=== PATIENT | female | born 1960 | race Caucasian/White ===

== ENCOUNTER → 2017-03-25 | Outpatient (REF) ==
[~2017-03-25] MED LIST: HYDR1OI TOP; TYLENOL #3; estrogel; multivitamin OR
--- NOTE | 2017-03-25 14:40 | REP ---
Chest two views HISTORY: Employee Health exam Comparison: 03/25/2016 The lungs are clear. The heart is normal in size. The pulmonary vasculature is normal in appearance. The bony structure is intact. IMPRESSION: No acute disease. Signed by Albino Mcguire MD 03/25/2017 02:31 P
[2017-03-25 15:16] LABS: MEAN CORPUSCULAR HEMOGLOBIN 31.8 pg (27.0-33.0); MEAN CORPUSCULAR HGB CONC 34.2 g/dl (32.0-36.5); RED CELL DISTRIBUTION WIDTH 12.6 % (11.5-14.5); WHITE BLOOD COUNT 6.7 K/mm3 (4.0-10.0)
[2017-03-25 15:43] LABS: ANION GAP 7 MEQ/L (8-16); BLOOD UREA NITROGEN 19 MG/DL (7-18); CALCIUM LEVEL 8.8 MG/DL (8.5-10.1); CARBON DIOXIDE LEVEL 28 MEQ/L (21-32); CHLORIDE LEVEL 107 MEQ/L (98-107); CHOLESTEROL LEVEL 168 MG/DL (<200); CREATININE FOR GFR 0.99 MG/DL (0.55-1.02); GLOMERULAR FILTRATION RATE > 60.0 (>51); GLUCOSE, FASTING 129 MG/DL (70-105); SODIUM LEVEL 142 MEQ/L (136-145); TRIGLYCERIDES LEVEL 91 MG/DL (<150)
--- NOTE | 2017-03-26 16:38 | ECGEPIP ---
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
== END ==
LOC: M LAB 13:10
PROVIDERS: ATTEND Internal Medicine
DX: Z00.00 Encounter for general adult medical examination without abnormal findings (principal)

== ENCOUNTER → 2017-03-28 | Outpatient (REF) | payer OTHER, BC | LOC: M SFHCWAGY 14:49 | PROVIDERS: ATTEND Nurse Practitioner Adult Health | DX: Z12.4 Encounter for screening for malignant neoplasm of cervix (principal) ==

== ENCOUNTER → 2017-05-25 | Outpatient (REF) ==
--- NOTE | 2017-05-25 09:10 | REPMRS ---
Patient History The patient states she had a clinical breast exam in 04/08 Family history of breast cancer in sister at age 40, colorectal cancer in mother at age 50 or over, and breast cancer in paternal cousin at age 44. Taking unspecified hormones for 5 years. Digital Woman Screen Mammo: May 25, 2017 - Exam #: [id number] Bilateral CC and MLO view(s) were taken. Technologist: Kalyn Gibbs, Technologist Prior study comparison: May 24, 2016, digital woman screen mammo performed at [facility]. August 08, 2014, digital woman screen mammo performed at [facility]. FINDINGS: There are scattered fibroglandular densities. There has been no change in the appearance of the mammogram from the prior studies. There is a mild amount of residual fibroglandular tissue which is fairly symmetric. There is no interval development of dominant mass, architectural distortion, or clustered microcalcification suggestive of malignancy. ASSESSMENT: BI-RADS/ACR category 1 mammogram. Negative. Recommendation Routine screening mammogram in 1 year (for women over age 40). This mammogram was interpreted with the aid of an FDA-approved computer-aided dectection system. A. Negative x-ray reports should not delay biopsy if a dominant or clinically suspicious mass is present. B. Four to eight percent of cancers are not identified by mammography. C. Adenosis and dense breast may obscure an underlying neoplasm. Electronically Signed By: Emerson Guerra MD 05/25/17 [id number]
== END ==
LOC: M WHC 08:01
PROVIDERS: ATTEND Nurse Practitioner Adult Health
DX: Z12.31 Encounter for screening mammogram for malignant neoplasm of breast (principal)

== ENCOUNTER → 2018-03-23 | Outpatient (CLI) | payer BC, OTHER ==
[2018-03-23 08:09] LABS: HEMATOCRIT 38.5 % (36.0-47.0); HEMOGLOBIN 12.6 g/dl (12.0-15.5); MEAN CORPUSCULAR HEMOGLOBIN 28.6 pg (27.0-33.0); MEAN CORPUSCULAR HGB CONC 32.7 g/dl (32.0-36.5); MEAN CORPUSCULAR VOLUME 87.3 fl (80.0-96.0); PLATELET COUNT, AUTOMATED 290 10^3/uL (150-450); RED BLOOD COUNT 4.41 10^6/uL (4.00-5.40); RED CELL DISTRIBUTION WIDTH 13.9 % (11.5-14.5); WHITE BLOOD COUNT 5.3 10^3/uL (4.0-10.0)
[2018-03-23 08:45] LABS: ALBUMIN 3.6 GM/DL (3.2-5.2); ALKALINE PHOSPHATASE 61 U/L (45-117); ALT/SGPT 41 U/L (12-78); ANION GAP 7 MEQ/L (8-16); AST/SGOT 27 U/L (7-37); BILIRUBIN,TOTAL 0.3 MG/DL (0.2-1.0); BLOOD UREA NITROGEN 14 MG/DL (7-18); CALCIUM LEVEL 8.2 MG/DL (8.5-10.1); CARBON DIOXIDE LEVEL 27 MEQ/L (21-32); CHLORIDE LEVEL 110 MEQ/L (98-107); CREATININE FOR GFR 0.64 MG/DL (0.55-1.30); GLOMERULAR FILTRATION RATE > 60.0 (>51); GLUCOSE, FASTING 80 MG/DL (70-100); SODIUM LEVEL 144 MEQ/L (136-145); TOTAL PROTEIN 6.6 GM/DL (6.4-8.2)
[2018-03-23 12:12] LABS: VITAMIN B12 LEVEL 937 PG/ML
[2018-03-23 12:13] LABS: FOLATE 21.5 NG/ML
[2018-03-23 12:35] LABS: HEPATITIS C VIRUS ABY INDEX < 0.0 INDEX (<0.8)
== END ==
LOC: M LAB 07:09
DX: Z11.59 Encounter for screening for other viral diseases (principal); Z98.84 Bariatric surgery status
CPT/HCPCS: 82746

== ENCOUNTER → 2018-07-03 | Outpatient (REF) | LOC: M WHC 06:38 | DX: Z00.00 Encounter for general adult medical examination without abnormal findings (principal); Z12.31 Encounter for screening mammogram for malignant neoplasm of breast ==

== ENCOUNTER → 2018-09-04 | Outpatient (CLI) | payer OTHER, BC | LOC: M RAD 07:30 | DX: S46.211A Strain of muscle, fascia and tendon of other parts of biceps, right arm, initial encounter (principal); X58.XXXA Exposure to other specified factors, initial encounter; Y92.9 Unspecified place or not applicable; M75.31 Calcific tendinitis of right shoulder | CPT/HCPCS: 73221 ==

== ENCOUNTER → 2019-02-06 | Outpatient (CLI) | payer OTHER, BC ==
[~2019-02-06] MED LIST changes: -HYDR1OI TOP; +HYDR1OIN2 TOP
[2019-02-06 16:37] LABS: HEMOGLOBIN 12.4 g/dl (12.0-15.5); MEAN CORPUSCULAR HEMOGLOBIN 27.3 pg (27.0-33.0); MEAN CORPUSCULAR HGB CONC 32.6 g/dl (32.0-36.5); MEAN CORPUSCULAR VOLUME 83.5 fl (80.0-96.0); PLATELET COUNT, AUTOMATED 335 10^3/uL (150-450); RED BLOOD COUNT 4.55 10^6/uL (4.00-5.40); WHITE BLOOD COUNT 9.1 10^3/uL (4.0-10.0)
[2019-02-06 17:05] LABS: ALBUMIN 3.7 GM/DL (3.2-5.2); ALT/SGPT 33 U/L (12-78); BILIRUBIN,TOTAL 0.3 MG/DL (0.2-1.0); BLOOD UREA NITROGEN 9 MG/DL (7-18); CALCIUM LEVEL 7.9 MG/DL (8.5-10.1); CARBON DIOXIDE LEVEL 27 MEQ/L (21-32); CHLORIDE LEVEL 108 MEQ/L (98-107); GLOMERULAR FILTRATION RATE > 60.0 (>51); GLUCOSE, FASTING 79 MG/DL (70-100); SODIUM LEVEL 139 MEQ/L (136-145); TOTAL PROTEIN 6.5 GM/DL (6.4-8.2)
== END ==
LOC: M LAB 16:12
PROVIDERS: ATTEND Nurse Practitioner Adult Health
DX: J34.89 Other specified disorders of nose and nasal sinuses (principal)

== ENCOUNTER → 2019-02-21 | Outpatient (CLI) | payer OTHER, BC ==
--- NOTE | 2019-02-21 16:44 | REP ---
MAXILLOFACIAL CT WITHOUT CONTRAST: HISTORY: Sinus pressure. COMPARISON: 12/02/2013 Very minimal mucosal thickening is present in the right ethmoid sinus. The remaining sinuses are clear. The osteomeatal units are patent. The middle and inferior nasal turbinates are partially paradoxical. There is very minimal deviation of the nasal septum to the left. The nasal septum abuts the left inferior nasal turbinate. The cribriform plate, medial beasley of the orbits and optic canals are intact. The carotid canals form a segment of the posterolateral beasley of the sphenoid sinus. The sphenoid sinus septa inserts into the internal carotid canals beasley. IMPRESSION:Sinus mucosal thickening as described above. Electronically Signed by Albino Mcguire MD 02/21/2019 04:46 P
== END ==
LOC: M RAD 15:52
PROVIDERS: ATTEND Nurse Practitioner Adult Health
DX: J34.89 Other specified disorders of nose and nasal sinuses (principal)

== ENCOUNTER → 2019-08-17 | Outpatient (REF) | payer OTHER, BC ==
[2019-08-17 09:53] LABS: APPEARANCE, URINE CLEAR (CLEAR); BACTERIA, URINE AUTO NEGATIVE (NEGATIVE); BILIRUBIN, URINE AUTO NEGATIVE (NEGATIVE); BLOOD, URINE BLOOD NEGATIVE (NEGATIVE); COLOR, URINE COLORLESS (YELLOW); GLUCOSE, URINE (UA) AUTO NEGATIVE (NEGATIVE); KETONE, URINE AUTO NEGATIVE (NEGATIVE); LEUKOCYTE ESTERASE, URINE AUTO NEGATIVE (NEGATIVE); NITRITE, URINE AUTO NEGATIVE (NEGATIVE); PROTEIN, URINE AUTO NEGATIVE (NEGATIVE); RBC, URINE AUTO 0 /HPF (0-3); SPECIFIC GRAVITY URINE AUTO 1.003 (1.002-1.035); SQUAMOUS EPITHELIAL CELL UR AU 0 /HPF (0-6); UROBILINOGEN, URINE AUTO 0.2 mg/dL (0.0-2.0); WBC, URINE AUTO 0 /HPF (0-3)
== END ==
LOC: M LAB REF 07:40
PROVIDERS: ATTEND Internal Medicine
DX: R30.0 Dysuria (principal)

== ENCOUNTER 2019-12-22 14:33 | Emergency (ER) | payer OTHER, BC ==
[~2019-12-22] VITALS: Ht 165.1 cm; Wt 72.7 kg
[2019-12-22] MEDS ORDERED: NS 1,000 ML IV ONE (15:15)
[2019-12-22 15:17] LABS: BASO # 0.1 10^3/uL (0.0-0.2); BASO % 0.5 % (0.0-1.0); EOS # 0.2 10^3/uL (0.0-0.5); EOS % 1.4 % (0.0-3.0); HEMOGLOBIN 10.6 g/dl (12.0-15.5); LYMPH # 3.1 10^3/uL (1.5-5.0); LYMPH % 27.9 % (24.0-44.0); MEAN CORPUSCULAR HEMOGLOBIN 25.2 pg (27.0-33.0); MEAN CORPUSCULAR HGB CONC 32.1 g/dl (32.0-36.5); MEAN CORPUSCULAR VOLUME 78.6 fl (80.0-96.0); MONO % 9.1 % (0.0-5.0); NEUTROPHILS # 6.7 10^3/uL (1.5-8.5); NEUTROPHILS % 60.6 % (36.0-66.0); PLATELET COUNT, AUTOMATED 358 10^3/uL (150-450); WHITE BLOOD COUNT 11.1 10^3/uL (4.0-10.0)
[2019-12-22 15:23] LABS: INR 1.04; PARTIAL THROMBOPLASTIN TIME 27.1 SECONDS (25.0-38.4); PROTHROMBIN TIME 13.3 SECONDS (11.8-14.0)
[2019-12-22] MEDS ORDERED: FLUC100T (15:27)
[2019-12-22] MEDS ORDERED: METH-1022 (15:27)
[2019-12-22] MEDS ORDERED: PANT40TA3 (15:27)
[2019-12-22 15:32] LABS: ALBUMIN 3.7 GM/DL (3.2-5.2); ALT/SGPT 31 U/L (12-78); BILIRUBIN,DIRECT < 0.1 MG/DL (0.0-0.2); BILIRUBIN,TOTAL 0.3 MG/DL (0.2-1.0); C REACTIVE PROTEIN QUANTITATIV < 0.30 MG/DL (0.00-0.30); CK-MB VALUE MASS 3.2 NG/ML (<3.6); CPK CREATINE PHOSPHOKINASE 176 U/L (26-192); LIPASE 158 U/L (73-393); MB/CK RELATIVE INDEX 1.82 (< OR =4); NT-PRO BNP 51 PG/ML (<125); THYROID STIMULATING HORMONE 0.717 uIU/ML (0.358-3.740); TOTAL PROTEIN 6.9 GM/DL (6.4-8.2); TROPONIN I < 0.02 NG/ML (< 0.10)
[2019-12-22] MEDS ORDERED: ISOVUE-370 76% 100ML VIAL (Q9967) As Ordered ONE (15:36)
[2019-12-22 15:49] LABS: ERYTHROCYTE SEDIMENTATION RATE 29 mm/hr (0-30)
[2019-12-22] MEDS ORDERED: AMMONIA AROMATIC INHALANT (FLOOR STOCK) As Ordered ONE (16:00)
[2019-12-22] MEDS ORDERED: KETOROLAC 30 MG/ML VIAL (J1885) IV ONE (16:30)
[2019-12-22 17:37] LABS: CK-MB VALUE MASS 2.9 NG/ML (<3.6); CPK CREATINE PHOSPHOKINASE 140 U/L (26-192); MB/CK RELATIVE INDEX 2.07 (< OR =4); TROPONIN I < 0.02 NG/ML (< 0.10)
[2019-12-22 17:58] LABS: FERRITIN 5 NG/ML (8-252); IRON (FE) 28 UG/DL (50-170); PERCENT SATURATION 6.5 % (13.2-45.0); TOTAL IRON BINDING CAPACITY 431 UG/DL (250-450)
[2019-12-22] MEDS ORDERED: VITA500C24 PO (18:22)
[2019-12-22] MEDS ORDERED: FERR325T3 PO (18:22)
[2019-12-22 18:35] VITALS: BP 112/69
--- NOTE | 2019-12-22 20:51 | ECGEPIP ---
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
--- NOTE | 2019-12-22 20:55 | ECGEPIP ---
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
--- NOTE | 2019-12-23 07:41 | REP ---
CT ANGIOGRAM CHEST: TECHNIQUE: Axial contrast enhanced images from the thoracic inlet to the upper abdomen using 100 mL Isovue 370 intravenous contrast material with multiplanar reformations. There is no CT evidence of pulmonary embolism. There is no thoracic aortic aneurysm or dissection. The heart is normal in size. There is no pleural or pericardiac effusion. There is a calcified subcarinal lymph node. Calcified lymph nodes are seen in the hilar regions. Calcified granuloma is seen in the right lung in the perihilar region and there are two calcified granulomas in the left lower lobe. No infiltrate is seen in either lung. IMPRESSION: No CT evidence of pulmonary embolism. Evidence of prior granulomatous disease. Electronically Signed by Hussein Ly MD 12/23/2019 12:02 P
--- NOTE | 2019-12-23 07:46 | REP ---
CT ABDOMEN AND PELVIS WITH IV CONTRAST: TECHNIQUE: Axial contrast enhanced images from the lung bases to the pubic symphysis using 100 mL Isovue 370 intravenous contrast material with multiplanar reformations. There is a small hiatal hernia. There is evidence of prior gastric surgery. The liver demonstrates a cyst in the right lobe measuring 2 cm in diameter. There is a subcentimeter cyst in the inferior posterior right lobe of liver. Patient has had a prior cholecystectomy. Spleen is normal in size. Splenic artery aneurysm is seen in the splenic hilum partially opacifying with IV contrast, diameter is approximately 2.2 cm. Adrenal glands are normal. Pancreas demonstrates no mass and no evidence of pancreatic duct dilatation. Kidneys are unremarkable. There is no hydronephrosis. There is no abdominal aneurysm. Multiple subcentimeter mesenteric lymph nodes are seen centrally which are nonspecific. Otherwise no adenopathy is seen. There is no free air or free fluid. There is no bowel wall thickening. Mildly distended colon is seen containing air and fecal material. I do not see evidence of small bowel obstruction. No pelvic mass is seen. The patient has had a hysterectomy. There are mild degenerative changes of the spine. IMPRESSION: There is evidence of prior cholecystectomy, gastric surgery, and hysterectomy. Small hiatal hernia. No free air or free fluid. Mild colonic distension containing air and fecal material. No evidence of small bowel obstruction. Moderately distended bladder. Multiple subcentimeter lymph nodes in the mesentery are nonspecific. Splenic artery aneurysm. Electronically Signed by Hussein Ly MD 12/23/2019 01:19 P
--- NOTE | 2019-12-25 10:51 | ED PDOC ---
Post-Departure Follow-Up dr faust faxed formal report of ct abd/p for fu Ryne Germain MD Dec 25, 2019 10:51
== END 2019-12-22 18:38 | disposition home or self-care (01) ==
LOC: M ED 14:33
DX: D50.9 Iron deficiency anemia, unspecified (principal); K59.00 Constipation, unspecified; R07.89 Other chest pain; I72.8 Aneurysm of other specified arteries; I45.19 Other right bundle-branch block; F90.9 Attention-deficit hyperactivity disorder, unspecified type; K21.9 Gastro-esophageal reflux disease without esophagitis; G47.30 Sleep apnea, unspecified; Z79.899 Other long term (current) drug therapy; Z88.8 Allergy status to other drugs, medicaments and biological substances
CPT/HCPCS: 71275; 74177; 80047; 80076; 82550; 82553; 82728; 83550; 83690; 83880; 84443; 84484; 85025; 85610; 85652; 85730; 86140; 93005; 93041; 94760; 96360; 96361; 96375; 99285; J1885; Q9967

== ENCOUNTER 2020-05-11 19:04 | Inpatient (IN) | payer OTHER, BC ==
[~2020-05-11] VITALS: Ht 165.1 cm; Wt 74.1 kg
[~2020-05-11 19:04] MED LIST changes: +FERR325T3 PO; +FLUC100T; +METH-1022; +PANT40TA29; +VITA500C24 PO
[2020-05-11] MEDS ORDERED: ASPI81TA26 PO (19:43)
[2020-05-11] MEDS ORDERED: NS 1,000 ML IV ONE (19:45)
--- NOTE | 2020-05-11 19:47 | REPVR ---
PROCEDURE INFORMATION: Exam: CT Head Without Contrast Exam date and time: 05/11/2020 7:21 PM Age: 60 years old Clinical indication: Numbness / parasthesia; Right; Additional info: Neuro SX TECHNIQUE: Imaging protocol: Computed tomography of the head without contrast. Radiation optimization: All CT scans at this facility use at least one of these dose optimization techniques: automated exposure control; mA and/or kV adjustment per patient size (includes targeted exams where dose is matched to clinical indication); or iterative reconstruction. COMPARISON: CT Head without contrast 12/02/2013 6:16 AM FINDINGS: Brain: Unremarkable. No hemorrhage. No significant white matter disease. No edema. No acute stroke identified. Note should be made that early acute stroke may not be visible on initial CT scan. Ventricles: Unremarkable. No ventriculomegaly. Bones/joints: Unremarkable. No acute fracture. Sinuses: Visualized sinuses are unremarkable. No fluid levels. Mastoid air cells: Visualized mastoid air cells are well aerated. Soft tissues: Unremarkable. IMPRESSION: No acute abnormality. Electronically signed by: Brendan Higuera On 05/11/2020 19:47:43 PM
[2020-05-11 19:54] LABS: BASO # 0.1 10^3/uL (0.0-0.2); BASO % 0.4 % (0.0-1.0); EOS # 0.1 10^3/uL (0.0-0.5); EOS % 1.1 % (0.0-3.0); HEMATOCRIT 28.6 % (36.0-47.0); HEMOGLOBIN 8.9 g/dl (12.0-15.5); LYMPH # 2.8 10^3/uL (1.5-5.0); LYMPH % 24.9 % (24.0-44.0); MEAN CORPUSCULAR HEMOGLOBIN 22.3 pg (27.0-33.0); MEAN CORPUSCULAR HGB CONC 31.1 g/dl (32.0-36.5); MEAN CORPUSCULAR VOLUME 71.5 fl (80.0-96.0); MONO # 1.2 10^3/uL (0.0-0.8); MONO % 10.2 % (0.0-5.0); NEUTROPHILS # 7.1 10^3/uL (1.5-8.5); NEUTROPHILS % 62.9 % (36.0-66.0); PLATELET COUNT, AUTOMATED 433 10^3/uL (150-450); WHITE BLOOD COUNT 11.3 10^3/uL (4.0-10.0)
[2020-05-11 19:59] LABS: INR 1.08; PARTIAL THROMBOPLASTIN TIME 29.3 SECONDS (25.0-38.4); PROTHROMBIN TIME 13.7 SECONDS (11.8-14.0)
[2020-05-11] MEDS ORDERED: VITMTA PO (23:02)
[2020-05-11] MEDS ORDERED: METH-1022 PO (23:02)
[2020-05-11] MEDS ORDERED: CODCAP25 PO (23:02)
[2020-05-11] MEDS ORDERED: MAG400TA PO (23:02)
[2020-05-11] MEDS ORDERED: C 50TAB PO (23:02)
[2020-05-11] MEDS ORDERED: METOCLOPRAMIDE INJ 10MG/2ML VIAL (J2765 PER 1) IV ONE (23:15)
[2020-05-11] MEDS ORDERED: KETOROLAC 30 MG/ML 1ML VIAL IV ONE (23:15)
[2020-05-12] MEDS ORDERED: ACETAMINOPHEN TAB 650MG DOSE (2X325MG) PO PRN
[2020-05-12] MEDS ORDERED: PANTOPRAZOLE 40MG TAB (PROTONIX) PO ONE (00:15)
[2020-05-12] MEDS: NS 1,000 ML IV SCH ×3 (00:15→21:02)
[2020-05-12] MEDS ORDERED: KETOROLAC 30 MG/ML 1ML VIAL IV PRN (00:15)
--- NOTE | 2020-05-12 00:28 | HPEPDOC ---
General Date of Admission 05/12/2020 Date of Service: May 12, 2020 Chief Complaint The patient is a 60-year-old female Who presented to the hospital with complaints of headache and numbness of multiple areas of her body History of Present Illness Patient is a 60-year-old female with a PMHx of ADHD, DLP who presented to the hospital with complaints of headache and multiple areas with numbness on the right side of her body. Patient was that she was recently at [facility] for correction of a splenic artery aneurysm, which was incidentally found when she was evaluated for a PE. She had presented there on 04/17 for an elective procedure with vascular surgery. She initially received an angiogram. Her right femoral artery. However, they were unable to advance it to the splenic artery because of her gastric bypass. . He subsequently went into a left brachial artery, breakdown and embolized the splenic artery with 9 coils. Patient received Reglan, Toradol, and heparin post-procedure and was subsequently discharged home. Patient noted that at home she was experiencing a right-sided headache associated with some tingling of her right second digit of her foot and her ri ght upper lip. Patient felt like she had a speech, but was unnoticeable by others. Patient presented to the emergency room for further evaluation. However, she is reported that now she no longer experiences any of the numbness. Still experiences a headache that has now progressed from her right eye across the front of her of her forehead and radiates to the back. Patient reports the pain initially was a 6/10 but is now 3/10, reported as an achy/pressure-like, occurring intermittently alleviated with Toradol. . She reports some aggravation with light no changes and sensitivity to sound. Patient denies any nausea, vomiting, abdominal pain, constipation, diarrhea, urinary discomfort, fevers, chills, chest pain, shortness of breath, cough or palpitations. Home Medications Scheduled Ascorbic Acid (Vitamin C) 500 Mg Tablet, 500 MG PO DAILY, (Reported) Aspirin (Aspirin EC) 81 Mg Tablet.dr, 81 MG PO DAILY, (Reported) Magnesium Oxide (Magnesium Oxide) 400 Mg Tablet, 400 MG PO DAILY, (Reported) Multivitamins (Thera M Plus Tablet) 1 Each Tablet, 1 TAB PO DAILY, (Reported) Vit A and D3 in Cod Liver Oil (Cod Liver Oil Softgel) 1 Each Capsule, 1 CAP PO DAILY, (Reported) Scheduled PRN Methylphenidate HCl (Methylphenidate HCl) 10 Mg Tablet, 10 MG PO DAILY PRN for CONCENTRATION, (Reported) Allergies Coded Allergies: latex (Verified Allergy, Intermediate, rash, 05/11/20) nitrofurantoin (Verified Allergy, Mild, THROAT SWELLING, 12/22/19) Past Medical History Medical History ADHD, DLP Surgical History Gastric bypass Hysterectomy Vaginal repair with bladder suspension, resulting and rectocele Cholecystectomy and appendectomy Right ankle fracture with plate Family History - Maternal grandmother with diabetes and father with macular degeneration Social History - Denies the use of alcohol, tobacco or illicit drugs - Denies recent travel or sick contacts - Lives with and children - 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; 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 Review of Systems Other systems 10 point review of systems complete, all negative otherwise stated in HPI Vital Signs - Vitals: BP [107/65], HR [75], RR [16], Sat [100%RA], Temp [99.5F] - General: Lying in bed, No acute distress, Speaking in full sentences, AAOx3 - HEENT: NC, AT, PERRLA, EOMI - CVS: RRR, +S1S2 - Lungs: Fair air entry bilaterally, No appreciable wheezing / rales / rhonchi - Abdomen: Soft, Non-distended, Non-tender - Extremities: No lower extremity edema, No calf tenderness - Neuro: 5/5 strength at upper / lower extremities bilaterally; sensation intact bilaterally; CN2-12 grossly intact - Skin: No visible rashes Laboratory Data Labs 24H Laboratory Tests 2 05/11/20 19:15: Immature Granulocyte % (Auto) 0.5, Neutrophils (%) (Auto) 62.9, Lymphocytes (%) (Auto) 24.9, Monocytes (%) (Auto) 10.2H, Eosinophils (%) (Auto) 1.1, Basophils (%) (Auto) 0.4, Neutrophils # (Auto) 7.1, Lymphocytes # (Auto) 2.8, Monocytes # (Auto) 1.2H, Eosinophils # (Auto) 0.1, Basophils # (Auto) 0.1, Nucleated Red Blood Cells % (auto) 0.0, Prothrombin Time 13.7, Prothromb Time International Ratio 1.08, Activated Partial Thromboplast Time 29.3 05/11/20 20:32: POC Glucose (Misc Panel) 75, POC Sodium (Misc Panel) 139, POC Potassium (Misc Panel) 3.4L, POC Chloride (Misc Panel) 101, POC Total CO2 (Misc Panel) 24.0, POC Blood Urea Nitrogen (Misc Panel 13, POC Ionized Calcium (Misc Panel) 4.5, POC Creatinine (Misc Panel) 0.6, POC Hematocrit (Misc Panel) 48.0 05/11/20 20:46: POC Troponin I (Misc) 0.00 CBC/BMP Laboratory Tests 05/11/20 19:15 Plan / VTE VTE Prophylaxis Ordered?: Yes Plan Plan Headache / Right lip and toe numbness - possibly 2/2 TIA, possibly 2/2 complex migraine - Patient presented to the emergency room after she noted a headache this morning and right foot second digit as well as right upper lip numbness and tingling - Upon arrival to ER, patient has had resolution of her numbness and her headache has improved, but is now diffusely spread throughout her head - Physical without any focal neurologic deficits - CT head 05/11: No acute abnormality. - Ritesh check MRI / MRA brain if possible (given recent coil placement of splenic artery) - If MRI cannot proceed will get repeat CT head in 12 hours / CTA head/neck/chest - Will get ECHO / Neuro checks / Telemetry / Cardiac risk profile - Patient recently started taking ASA 2 days ago; will c/w ASA 81; will start Pravastatin - Will start PT - Will c/w Ketorolac and IV fluid hydration for now Recent splenic artery aneurysm embolization - 9 coils placed ADHD - c/w Methylphenidate DLP - Will start pravastatin GERD - Will start Protonix DVT prophylaxis - Will start TEDs/DARA Pagan MD May 12, 2020 00:28
[2020-05-12 00:50] LABS: CHOLESTEROL RISK RATIO 2.725 (<5); MAGNESIUM LEVEL 2.5 MG/DL (1.8-2.4)
--- NOTE | 2020-05-12 02:42 | REPVR ---
PROCEDURE INFORMATION: Exam: MR Angiogram Head Without Contrast, Arteries Exam date and time: 05/12/2020 2:26 AM Age: 60 years old Clinical indication: Patient HX: PT states HX of chronic migraines, numbness in upper lip, and toes that has since subsided, nki no priors obatinable; Additional info: TIA. Recent splenic artery coils (needs mri safety check) TECHNIQUE: Imaging protocol: MR angiogram head without contrast. Exam focused on the arteries. 3D rendering: MIP and/or 3D reconstructed images were created by the technologist. COMPARISON: CT Head without contrast 05/11/2020 7:18 PM FINDINGS: Anterior cerebral arteries: Intracranial segment is patent with no significant stenosis. No aneurysm. Right internal carotid artery: Intracranial segment is patent with no significant stenosis. No aneurysm. Right middle cerebral artery: No occlusion or significant stenosis. No aneurysm. Right posterior cerebral artery: No occlusion or significant stenosis. No aneurysm. Right vertebral artery: No occlusion or significant stenosis. No aneurysm. Left internal carotid artery: Intracranial segment is patent with no significant stenosis. No aneurysm. Left middle cerebral artery: No occlusion or significant stenosis. No aneurysm. Left posterior cerebral artery: No occlusion or significant stenosis. No aneurysm. Left vertebral artery: Dominant left vertebral artery. Basilar artery: No occlusion or significant stenosis. No aneurysm. IMPRESSION: Unremarkable MRA of the [id number]. Electronically signed by: Van Mccoy On 05/12/2020 02:41:28 AM
--- NOTE | 2020-05-12 02:58 | REPVR ---
PROCEDURE INFORMATION: Exam: MR Head Without Contrast Exam date and time: 05/12/2020 2:26 AM Age: 60 years old Clinical indication: Numbness / parasthesia; Bilateral; Patient HX: PT states HX of chronic migraines, numbness in upper lip, and toes that has since subsided, nki no priors obatinable; Additional info: TIA. Recent splenic artery coils (needs mri safety check) TECHNIQUE: Imaging protocol: MR of the head without contrast. COMPARISON: CT Head without contrast 05/11/2020 7:18 PM FINDINGS: Major vascular flow voids at the skull base are preserved. No extra-axial fluid collection. No hydrocephalus. No midline shift or intracranial mass effect. Minimal nonspecific white matter gliosis, probable chronic microvascular ischemia. No cerebral edema. Punctate focus of diffusion weighted signal at the left cerebellum. Visualized paranasal sinuses and mastoid air cells are clear. IMPRESSION: Punctate focus of diffusion weighted signal at the left cerebellum concerning for tiny acute/early subacute ischemic infarct. Electronically signed by: Van Mccoy On 05/12/2020 02:58:18 AM
[2020-05-12] MEDS ORDERED: ISOVUE-370 76% 100ML VIAL As Ordered ONE (03:52)
--- NOTE | 2020-05-12 04:21 | REPVR ---
PROCEDURE INFORMATION: Exam: CT Angiography Chest With Contrast Exam date and time: 05/12/2020 12:04 AM Age: 60 years old Clinical indication: Other: TIA TECHNIQUE: Imaging protocol: Computed tomographic angiography of the chest with intravenous contrast. 3D rendering: MIP and/or 3D reconstructed images were created by the technologist. Radiation optimization: All CT scans at this facility use at least one of these dose optimization techniques: automated exposure control; mA and/or kV adjustment per patient size (includes targeted exams where dose is matched to clinical indication); or iterative reconstruction. Contrast material: ISO; Contrast volume: 75 ml; Contrast route: INTRAVENOUS (IV); COMPARISON: CT ANGIO CHEST 12/22/2019 3:44 PM FINDINGS: Pulmonary arteries: There are embolic coils at the left upper quadrant. Aorta: Mild aortic calcification. Negative for thoracic aortic dissection or aneurysm. Lungs: There is mild bilateral posterior dependent atelectasis. No consolidation to indicate pneumonia. Superior segment right lower lobe pulmonary nodule measures 5 mm. There are calcified granulomas. Pleural space: Unremarkable. No pneumothorax. No pleural effusion. Heart: Unremarkable. No cardiomegaly. No pericardial effusion. Lymph nodes: There are calcified mediastinal and left hilar lymph nodes. Bones/joints: Unremarkable. No acute fracture. Soft tissues: Unremarkable. IMPRESSION: 1. No acute abnormality. 2. Right lower lobe pulmonary nodule measures 5 mm. For patients at low risk (minimal or absent history of smoking and of other known risk factors), no routine follow-up is indicated. For patients at high risk (history of smoking or of other known risk factors), consider optional CT at 12 months. (hiram De La Rosa., Fleischner Society, 2017) Electronically signed by: Van Mccoy On 05/12/2020 04:20:46 AM
[2020-05-12 04:40] VITALS: BP 102/68
[2020-05-12] MEDS: PRAVASTATIN 20 MG TAB PO SCH ×2 (04:59→21:02)
--- NOTE | 2020-05-12 07:58 | ECGEPIP ---
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
[2020-05-12 08:00] VITALS: BP 112/76
[2020-05-12] MEDS: PANTOPRAZOLE 40MG TAB (PROTONIX) PO SCH (08:19)
[2020-05-12] MEDS: ASCORBIC ACID 500 MG TAB PO SCH (08:19)
[2020-05-12] MEDS: ASPIRIN 81 MG ENTERIC TAB PO SCH (08:19)
[2020-05-12] MEDS: MULTIVITAMINS/MINERALS THERAP 1 TAB PO SCH (08:19)
[2020-05-12] MEDS: MAGNESIUM OXIDE 400 MG TAB (MAG-OX) PO SCH (08:20)
--- NOTE | 2020-05-12 08:20 | REP ---
Clinical: Acute cerebrovascular accident . Comparison: 03/25/2017 . Findings: The mediastinum and cardiac silhouette are stable and within normal limits for portable technique. The lung peralta are clear without acute consolidation, effusion, or pneumothorax. Skeletal structures are intact. Impression: No acute cardiopulmonary process appreciated. Electronically Signed by Elmer Yañez MD 05/12/2020 08:12 A
[2020-05-12] MEDS ORDERED: METHYLPHENIDATE 5 MG TAB PO PRN (09:00)
[2020-05-12 12:00] VITALS: BP 112/67
--- NOTE | 2020-05-12 14:25 | IPNPDOC ---
Text Note Date of Service The patient was seen on 05/12/20. NOTE Pt seen and examined. No focal deficits. CRUZ improving. MRI with small left ce rebellar cva. Cont ASA/statin. Echo/carotid u/s pending. Discussed with Dr. Villatoro who will see pt. VS,Fishbone, I+O VS, Fishbone, I+O Laboratory Tests 05/11/20 19:15 Vital Signs Date Time Temp Pulse Resp B/P (MAP) Pulse Ox O2 Delivery O2 Flow Rate FiO2 05/12/20 12:00 97.9 62 18 112/67 (82) 100 Room Air I&O- Last 24 Hours up to 6 AM 05/12/20 06:00 Intake Total 1200 ml Balance 1200 ml MERE LE MD May 12, 2020 14:25
--- NOTE | 2020-05-12 14:49 | REP ---
Clinical: Acute cerebrovascular accident with symptoms including extremity numbness/weakness, dizziness, headaches. Technique: Ly scale and color Doppler evaluation using linear high frequency transducer Findings: Two-dimensional ly scale and color images demonstrate relatively normal arterial lumen with laminar flow and no appreciable narrowing. Color Doppler interrogation demonstrates normal arterial wave patterns and velocities with no significant spectral broadening. Normal flow direction is appreciated in the bilateral vertebral arteries. RIGHT (cm/s) LEFT (cm/s) ICA peak systolic velocity 61.2 67.2 ICA diastolic velocity 22.9 21.4 ECA peak systolic velocity 67.6 65.0 CCA peak systolic velocity 96.5 132.4 ICA/CCA ratio 0.63 0.61 Impression: No hemodynamically significant areas of narrowing or stenosis appreciated. Based on set standards narrowing falls within the normal/less than 50% range. Electronically Signed by Elmer Yañez MD 05/12/2020 02:41 P
[2020-05-12 16:00] VITALS: BP 111/70
[2020-05-12 20:00] VITALS: BP 114/84
[2020-05-12 21:18] VITALS: BP 109/82
[2020-05-12] MEDS: AMITRIPTYLINE 10 MG TAB PO SCH (23:25)
[2020-05-13] VITALS: BP 113/69
[2020-05-13 04:00] VITALS: BP 98/56
[2020-05-13 06:03] LABS: BASO % 0.5 % (0.0-1.0); EOS # 0.2 10^3/uL (0.0-0.5); HEMATOCRIT 25.8 % (36.0-47.0); HEMOGLOBIN 7.8 g/dl (12.0-15.5); LYMPH % 27.6 % (24.0-44.0); MEAN CORPUSCULAR HEMOGLOBIN 22.1 pg (27.0-33.0); MEAN CORPUSCULAR HGB CONC 30.2 g/dl (32.0-36.5); MEAN CORPUSCULAR VOLUME 73.1 fl (80.0-96.0); MONO # 0.7 10^3/uL (0.0-0.8); MONO % 8.8 % (0.0-5.0); NEUTROPHILS # 4.5 10^3/uL (1.5-8.5); NEUTROPHILS % 60.6 % (36.0-66.0); PLATELET COUNT, AUTOMATED 365 10^3/uL (150-450); RED BLOOD COUNT 3.53 10^6/uL (4.00-5.40); WHITE BLOOD COUNT 7.4 10^3/uL (4.0-10.0)
[2020-05-13 06:21] LABS: BLOOD UREA NITROGEN 10 MG/DL (7-18); CARBON DIOXIDE LEVEL 24 MEQ/L (21-32); CHLORIDE LEVEL 113 MEQ/L (98-107); CREATININE FOR GFR 0.57 MG/DL (0.55-1.30); GLOMERULAR FILTRATION RATE > 60.0 (>51); GLUCOSE, FASTING 67 MG/DL (70-100); MAGNESIUM LEVEL 2.1 MG/DL (1.8-2.4); POTASSIUM SERUM 4.2 MEQ/L (3.5-5.1); SODIUM LEVEL 144 MEQ/L (136-145)
[2020-05-13] MEDS: NS 1,000 ML IV SCH (06:44)
[2020-05-13 07:58] VITALS: BP 108/55
[2020-05-13] MEDS: ASPIRIN 81 MG ENTERIC TAB PO SCH (08:45)
[2020-05-13] MEDS: MULTIVITAMINS/MINERALS THERAP 1 TAB PO SCH (08:45)
[2020-05-13] MEDS: ASCORBIC ACID 500 MG TAB PO SCH (08:45)
[2020-05-13] MEDS: PANTOPRAZOLE 40MG TAB (PROTONIX) PO SCH (08:45)
[2020-05-13] MEDS: MAGNESIUM OXIDE 400 MG TAB (MAG-OX) PO SCH (08:46)
--- NOTE | 2020-05-13 09:28 | CR ---
DATE OF CONSULTATION: 05/12/2020 REFERRING PHYSICIAN: Ez James MD REASON FOR CONSULTATION: Headaches. HISTORY OF PRESENT ILLNESS: The patient is a 60-year-old woman who had coiling of splenic artery aneurysm at [facility] on 04/17/2020. It was an elective procedure with vascular surgery. She had angiogram of the right femoral artery but were unable to advance it to splenic artery because of her gastric bypass. She subsequently had left brachial artery approach to embolize and coil splenic artery. The patient states that she developed headache around that time. Headache was right-sided, severe, 8/10 in intensity, pressure and throbbing in character. The patient states that she continued to develop headaches on right side of her head at home. She also felt tingling of her right 2nd digit of foot and right upper lip. She felt a change in speech which was not noted by others. The patient states that her cat was not leaving her side and was trying to stay with her and that is when she realized that there may be something wrong with her and decided to come to [facility]. The patient denies any neck pain, back pain, dysphagia, dysarthria, diplopia, urinary incontinence. She continues to have daily headaches requiring ice pack. MRI scan of brain was reviewed and showed a very small left cerebellar acute lacunar ischemic stroke. MRA brain was unremarkable. Carotid ultrasound showed less than 50% bilateral carotid artery stenosis. LDL was 90 and HDL was 62. Hemoglobin was 8.9. PAST MEDICAL HISTORY: Attention deficit disorder, insomnia, sleep apnea, splenic artery aneurysm, gastric bypass, hysterectomy, right ankle fracture, cholecystectomy, appendectomy, vaginal repair with bladder suspension. SOCIAL HISTORY: She denies smoking, alcohol or illicit drugs. FAMILY HISTORY: Paternal grandmother with diabetes and father with macular degeneration. ALLERGIES: LATEX, NITROFURANTOIN HOME MEDICATIONS: - methylphenidate 10 mg by mouth daily as needed - aspirin 81 mg by mouth daily - magnesium 400 mg by mouth daily - multivitamin one tablet by mouth daily REVIEW OF SYSTEMS: All systems were reviewed and found to be noncontributory except as mentioned in history of present illness. PHYSICAL EXAMINATION: Blood pressure 112/67, pulse 62, respiratory rate 18, temperature 97.9. Heart: Regular rate and rhythm. Lungs: Clear to auscultation. Abdomen: Soft, nontender, nondistended. No pedal edema. No musculoskeletal abnormalities. No rash. No signs of meningeal irritation. The patient is awake, alert, oriented to place, person and time. Normal speech comprehension and repetition. Extraocular muscles are intact. No facial weakness. Tongue and uvula are midline. 5/5 strength in all four extremities. Deep tendon reflexes 2+ throughout. Gait is normal. ASSESSMENT: 1. Small left cerebellar lacunar ischemic stroke. 2. Less than 50% bilateral carotid artery stenosis. 3. Headaches. 4. Insomnia and sleep apnea. PLAN: 1. Echocardiogram and continue telemetry monitoring. 2. Aspirin 81 mg by mouth daily. Her LDL and HDL were 90 and 62. 3. Amitriptyline 10 mg by mouth nightly and it can be slowly increased for her insomnia and headaches. 4. Physical and occupational therapy. 5. Follow with our office in 1-2 weeks after hospital discharge.
--- NOTE | 2020-05-13 09:42 | REP ---
Clinical: Anemia. History of splenic artery aneurysm embolization. Technique: Axial noncontrast images from the lung bases to the pubic symphysis with coronal and sagittal re-formations. Comparison: 12/22/2019. Findings: Evidence for prior gastric bypass surgery and splenic artery embolization with multiple coils in the left upper quadrant causing significant metallic streak artifact and somewhat limiting evaluation. Liver, spleen, visualized pancreas, bilateral adrenal glands and kidneys appear relatively normal for noncontrast evaluation. The distal aspect of the pancreatic body and tail is obscured by the above-mentioned metallic streak artifact and poorly assessed. Evaluation of the enteric system demonstrates moderate fecal stasis. No bowel obstruction. Mildly prominent lymph nodes in the mesentery are nonspecific, and essentially unchanged. Pelvis demonstrates normal bladder and evidence for prior hysterectomy. No pelvic fluid or ascites. No free air. No obvious significant retroperitoneal adenopathy noted. Musculoskeletal structures demonstrate age-related changes without acute osseous abnormality. Lung bases demonstrate bibasilar fibroatelectatic changes (right greater than left) and calcified granuloma at the in the left lower lobe. Impression: 1. Somewhat limited evaluation of the left upper abdomen as noted above. 2. Moderately prominent mesenteric lymph nodes similar to prior examination and of uncertain clinical significance or etiology. Electronically Signed by Elmer Yañez MD 05/13/2020 09:34 A
[2020-05-13 12:00] VITALS: BP 132/79
[2020-05-13 14:06] LABS: BASO % 0.4 % (0.0-1.0); EOS # 0.1 10^3/uL (0.0-0.5); EOS % 1.5 % (0.0-3.0); HEMOGLOBIN 8.5 g/dl (12.0-15.5); LYMPH # 2.2 10^3/uL (1.5-5.0); LYMPH % 23.8 % (24.0-44.0); MEAN CORPUSCULAR HEMOGLOBIN 22.3 pg (27.0-33.0); MEAN CORPUSCULAR HGB CONC 30.4 g/dl (32.0-36.5); MEAN CORPUSCULAR VOLUME 73.5 fl (80.0-96.0); MONO # 0.6 10^3/uL (0.0-0.8); NEUTROPHILS # 6.1 10^3/uL (1.5-8.5); PLATELET COUNT, AUTOMATED 378 10^3/uL (150-450); RED BLOOD COUNT 3.81 10^6/uL (4.00-5.40); WHITE BLOOD COUNT 9.1 10^3/uL (4.0-10.0)
[2020-05-13 16:00] VITALS: BP 100/61
--- NOTE | 2020-05-13 16:08 | IPNPDOC ---
Text Note Date of Service The patient was seen on 05/13/20. NOTE Subjective: Pt feeling better. CRUZ significantly improved. No CP/SOB/palpitati ons. No bleeding. No N/V/abd pain. Objective: Vitals: (see below) General: No acute distress, laying comfortably in bed. HEENT: Moist mucous membranes. Neck: No JVD or lymphadenopathy Cardiac: RRR, No murmurs Pulm: Clear to auscultation b/l. No wheezing, rhonchi Abd: NT/ND + BS Ext: No edema or cyanosis Labs (see below) Images: Acute CVA left cerebellum - On ASA 81mg po daily per neuro - PT/OT - Appreciate neuro input - Echo pending Anemia - stable - No bleeding - No need for transfusion at this time - F/u closely with PCP Recent splenic artery aneurysm embolization - 9 coils placed ADHD - c/w Methylphenidate DLP - pravastatin GERD - Protonix DVT Prophy: SCDs Likely for d/c in 24 hr. VS,Fishbone, I+O VS, Fishbone, I+O Laboratory Tests 05/13/20 05:45 05/13/20 13:43 Vital Signs Date Time Temp Pulse Resp B/P (MAP) Pulse Ox O2 Delivery O2 Flow Rate FiO2 05/13/20 12:00 97.2 68 18 132/79 (96) 98 Room Air I&O- Last 24 Hours up to 6 AM 05/13/20 06:00 Intake Total 3330 ml Output Total 800 ml Balance 2530 ml MERE LE MD May 13, 2020 16:08
[2020-05-13 20:00] VITALS: BP 111/61
[2020-05-13] MEDS: AMITRIPTYLINE 10 MG TAB PO SCH (20:20)
[2020-05-13] MEDS: PRAVASTATIN 20 MG TAB PO SCH (20:20)
[2020-05-14] VITALS: BP 110/55
[2020-05-14 04:00] VITALS: BP 104/65
[2020-05-14 05:34] LABS: BASO % 0.4 % (0.0-1.0); EOS # 0.1 10^3/uL (0.0-0.5); EOS % 1.4 % (0.0-3.0); HEMATOCRIT 27.9 % (36.0-47.0); HEMOGLOBIN 8.5 g/dl (12.0-15.5); LYMPH # 2.3 10^3/uL (1.5-5.0); LYMPH % 23.8 % (24.0-44.0); MEAN CORPUSCULAR HEMOGLOBIN 22.1 pg (27.0-33.0); MEAN CORPUSCULAR HGB CONC 30.5 g/dl (32.0-36.5); MEAN CORPUSCULAR VOLUME 72.7 fl (80.0-96.0); MONO # 0.8 10^3/uL (0.0-0.8); MONO % 8.7 % (0.0-5.0); NEUTROPHILS # 6.2 10^3/uL (1.5-8.5); NEUTROPHILS % 65.2 % (36.0-66.0); PLATELET COUNT, AUTOMATED 402 10^3/uL (150-450); RED BLOOD COUNT 3.84 10^6/uL (4.00-5.40); WHITE BLOOD COUNT 9.5 10^3/uL (4.0-10.0)
[2020-05-14 05:52] LABS: BLOOD UREA NITROGEN 11 MG/DL (7-18); CALCIUM LEVEL 8.3 MG/DL (8.5-10.1); CARBON DIOXIDE LEVEL 28 MEQ/L (21-32); CHLORIDE LEVEL 109 MEQ/L (98-107); CREATININE FOR GFR 0.61 MG/DL (0.55-1.30); GLOMERULAR FILTRATION RATE > 60.0 (>51); GLUCOSE, FASTING 72 MG/DL (70-100); MAGNESIUM LEVEL 2.1 MG/DL (1.8-2.4); POTASSIUM SERUM 3.8 MEQ/L (3.5-5.1); SODIUM LEVEL 140 MEQ/L (136-145)
[2020-05-14 07:42] VITALS: BP 110/64
[2020-05-14] MEDS: PANTOPRAZOLE 40MG TAB (PROTONIX) PO SCH (08:39)
[2020-05-14] MEDS: MULTIVITAMINS/MINERALS THERAP 1 TAB PO SCH (08:39)
[2020-05-14] MEDS: ASPIRIN 81 MG ENTERIC TAB PO SCH (08:40)
[2020-05-14] MEDS: MAGNESIUM OXIDE 400 MG TAB (MAG-OX) PO SCH (08:40)
[2020-05-14] MEDS: ASCORBIC ACID 500 MG TAB PO SCH (08:40)
--- NOTE | 2020-05-14 09:07 | ECHO ---
DATE OF STUDY: 05/12/2020 REFERRING PHYSICIAN: Dr. Peewee Gresham INDICATION: Transient Cerebral ischemia unspecified. HEIGHT: 155 cm. WEIGHT: 72 kg. 2-D MEASUREMENTS: Aortic root: 2.7 cm Left atrium: 3.7 cm Ventricular septum: 1.13 cm Posterior wall: 0.93 cm Left ventricle diastole: 3.9 cm DOPPLER MEASUREMENTS: No aortic stenosis No aortic regurgitation Aortic valve velocity: 154 cm/sec LVOT velocity: 117 cm/sec LVOT VTI: 23.1 cm Trace mitral regurgitation Mitral E velocity: 96.7 cm/sec Mitral A velocity: 75.8 cm/sec Mitral deceleration time: 211 ms Very mild tricuspid regurgitation Estimated right ventricular systolic pressure 28-33 mmHg assuming a right atrial pressure of 5-10 mmHg Pulmonary acceleration time: 140 ms, suggestive of normal PA systolic pressure MITRAL ANNULAR TISSUE DOPPLER: E prime septal: 8.9 cm/sec E prime lateral: 13.5 cm/sec DESCRIPTION: The rhythm was sinus. Image quality was good. This was a 2-D, M-mode, color flow Doppler and pulse wave Doppler examination and included mitral annular tissue Doppler. No pericardial effusion. CONCLUSIONS: 1. Normal echocardiogram Doppler. 2. Normal left ventricle internal dimensions and wall thickness. Normal regional LV wall motion and wall thickening. Normal LV systolic function. LVEF 65% by visual estimate. Normal LV diastolic function. MTDD
[2020-05-14] MEDS ORDERED: ASPI81TA26 PO (10:14)
[2020-05-14] MEDS ORDERED: AMIT10TA PO (10:14)
[2020-05-14] MEDS ORDERED: PRAV1TAB39 PO (10:14)
== END 2020-05-15 | disposition home or self-care (01) | DRG 66 ==
LOC: M ED 19:04 → M ED INP 05-12 → ENRESERV 05-12 03:10 → M ICU 05-12 04:25 → M PCU 05-12 21:19
PROVIDERS: ADMIT Internal Medicine; ATTEND Internal Medicine
DX: I63.9 Cerebral infarction, unspecified (principal); D64.9 Anemia, unspecified; K21.9 Gastro-esophageal reflux disease without esophagitis; F90.9 Attention-deficit hyperactivity disorder, unspecified type; Z79.899 Other long term (current) drug therapy; Z79.82 Long term (current) use of aspirin; Z91.040 Latex allergy status; Z88.8 Allergy status to other drugs, medicaments and biological substances

== ENCOUNTER → 2020-07-29 | Outpatient (CLI) | payer OTHER, BC ==
[~2020-07-29] MED LIST changes: +AMIT10TA PO; +ASPI81TA26 PO; +C 50TAB PO; +CODCAP25 PO; +MAG400TA PO; +METH-1022 PO; +PRAV1TAB39 PO; +VITMTA PO
[2020-07-29 17:46] LABS: BASO % 0.5 % (0.0-1.0); EOS # 0.1 10^3/uL (0.0-0.5); EOS % 1.5 % (0.0-3.0); HEMATOCRIT 26.9 % (36.0-47.0); LYMPH # 1.9 10^3/uL (1.5-5.0); LYMPH % 26.3 % (24.0-44.0); MEAN CORPUSCULAR HEMOGLOBIN 20.4 pg (27.0-33.0); MEAN CORPUSCULAR HGB CONC 29.7 g/dl (32.0-36.5); MEAN CORPUSCULAR VOLUME 68.4 fl (80.0-96.0); MONO # 0.8 10^3/uL (0.0-0.8); MONO % 11.4 % (0.0-5.0); NEUTROPHILS # 4.4 10^3/uL (1.5-8.5); PLATELET COUNT, AUTOMATED 400 10^3/uL (150-450); RED BLOOD COUNT 3.93 10^6/uL (4.00-5.40); WHITE BLOOD COUNT 7.4 10^3/uL (4.0-10.0)
[2020-07-29 18:11] LABS: ALBUMIN 3.5 GM/DL (3.2-5.2); ALT/SGPT 32 U/L (12-78); BILIRUBIN,TOTAL 0.3 MG/DL (0.2-1.0); BLOOD UREA NITROGEN 12 MG/DL (7-18); CALCIUM LEVEL 8.5 MG/DL (8.5-10.1); CARBON DIOXIDE LEVEL 29 MEQ/L (21-32); CHLORIDE LEVEL 102 MEQ/L (98-107); CREATININE FOR GFR 0.63 MG/DL (0.55-1.30); FERRITIN 4 NG/ML (8-252); GLOMERULAR FILTRATION RATE > 60.0 (>51); GLUCOSE, FASTING 94 MG/DL (70-100); IRON (FE) 18 UG/DL (50-170); PERCENT SATURATION 4.3 % (13.2-45.0); POTASSIUM SERUM 3.9 MEQ/L (3.5-5.1); SODIUM LEVEL 136 MEQ/L (136-145); TOTAL IRON BINDING CAPACITY 420 UG/DL (250-450); TOTAL PROTEIN 6.6 GM/DL (6.4-8.2)
[2020-07-29 18:19] LABS: VITAMIN B12 LEVEL 964 PG/ML
[2020-07-29 18:20] LABS: FOLATE 15.1 NG/ML
== END ==
LOC: M LAB 17:14
PROVIDERS: ATTEND Internal Medicine
DX: D50.8 Other iron deficiency anemias (principal); Z98.84 Bariatric surgery status

== ENCOUNTER 2020-08-03 14:20 | Outpatient (CLI) | payer OTHER, BC ==
[~2020-08-03] VITALS: Ht 165.1 cm; Wt 69.5 kg
[2020-08-03 14:30] VITALS: BP 116/73
[2020-08-03 15:15] VITALS: BP 118/69
[2020-08-03 16:15] VITALS: BP 99/70
[2020-08-03 16:45] VITALS: BP 112/79
[2020-08-03 17:20] VITALS: BP 107/72
== END 2020-08-03 17:20 | disposition home or self-care (01) ==
LOC: M INFU 14:20
PROVIDERS: ATTEND Nurse Practitioner Adult Health
DX: D50.9 Iron deficiency anemia, unspecified (principal); Z88.1 Allergy status to other antibiotic agents
CPT/HCPCS: 36415; 36430; 86850; 86900; 86901; 86920; P9016

== ENCOUNTER → 2020-08-03 | Outpatient (CLI) | payer OTHER, BC ==
[2020-08-03 12:56] LABS: BASO % 0.5 % (0.0-1.0); EOS # 0.1 10^3/uL (0.0-0.5); EOS % 0.9 % (0.0-3.0); HEMATOCRIT 30.1 % (36.0-47.0); HEMOGLOBIN 8.9 g/dl (12.0-15.5); LYMPH # 2.4 10^3/uL (1.5-5.0); LYMPH % 31.4 % (24.0-44.0); MEAN CORPUSCULAR HEMOGLOBIN 20.4 pg (27.0-33.0); MEAN CORPUSCULAR HGB CONC 29.6 g/dl (32.0-36.5); MONO # 0.8 10^3/uL (0.0-0.8); NEUTROPHILS # 4.3 10^3/uL (1.5-8.5); NEUTROPHILS % 57.1 % (36.0-66.0); PLATELET COUNT, AUTOMATED 417 10^3/uL (150-450); RED BLOOD COUNT 4.36 10^6/uL (4.00-5.40); WHITE BLOOD COUNT 7.6 10^3/uL (4.0-10.0)
[2020-08-03 13:25] LABS: ALBUMIN 3.7 GM/DL (3.2-5.2); ALT/SGPT 32 U/L (12-78); BILIRUBIN,TOTAL 0.4 MG/DL (0.2-1.0); BLOOD UREA NITROGEN 15 MG/DL (7-18); CARBON DIOXIDE LEVEL 28 MEQ/L (21-32); CHLORIDE LEVEL 105 MEQ/L (98-107); CREATININE FOR GFR 0.67 MG/DL (0.55-1.30); FERRITIN < 3 NG/ML (8-252); GLOMERULAR FILTRATION RATE > 60.0 (>51); GLUCOSE, FASTING 109 MG/DL (70-100); IRON (FE) 12 UG/DL (50-170); PERCENT SATURATION 2.7 % (13.2-45.0); POTASSIUM SERUM 3.8 MEQ/L (3.5-5.1); SODIUM LEVEL 139 MEQ/L (136-145); TOTAL IRON BINDING CAPACITY 449 UG/DL (250-450); TOTAL PROTEIN 7.1 GM/DL (6.4-8.2)
[2020-08-03 13:29] LABS: FOLATE 16.1 NG/ML (>5.4); VITAMIN B12 LEVEL 1034 PG/ML (247-911)
== END ==
LOC: M LAB 12:22
PROVIDERS: ATTEND Internal Medicine
DX: D50.8 Other iron deficiency anemias (principal); Z98.84 Bariatric surgery status

== ENCOUNTER 2020-08-04 12:10 | Outpatient (CLI) | payer OTHER, BC ==
[~2020-08-04] VITALS: Ht 165.1 cm; Wt 69.5 kg
[2020-08-04 12:30] VITALS: BP 122/78
[2020-08-04] MEDS ORDERED: IRON SUCROSE 475 MG in NS 250 ML IV ONE (12:30)
[2020-08-04] MEDS ORDERED: IRON SUCROSE 25 MG in NS 25 ML IV ONE (12:30)
[2020-08-04 14:00] VITALS: BP 111/73
[2020-08-04 15:00] VITALS: BP 94/55
[2020-08-04 16:00] VITALS: BP 101/61
[2020-08-04 16:30] VITALS: BP 102/67
[2020-08-04 17:00] VITALS: BP 107/71
== END 2020-08-04 17:00 | disposition home or self-care (01) ==
LOC: M INFU 12:10
PROVIDERS: ATTEND Nurse Practitioner Adult Health
DX: D50.9 Iron deficiency anemia, unspecified (principal); Z88.1 Allergy status to other antibiotic agents; Z88.8 Allergy status to other drugs, medicaments and biological substances
CPT/HCPCS: 96365; 96366; 96376; J1756

== ENCOUNTER → 2020-08-15 | Outpatient (CLI) | payer OTHER, BC ==
[2020-08-15 12:18] LABS: HEMATOCRIT 34.2 % (36.0-47.0); HEMOGLOBIN 10.4 g/dl (12.0-15.5); MEAN CORPUSCULAR HEMOGLOBIN 22.6 pg (27.0-33.0); MEAN CORPUSCULAR HGB CONC 30.4 g/dl (32.0-36.5); MEAN CORPUSCULAR VOLUME 74.2 fl (80.0-96.0); PLATELET COUNT, AUTOMATED 298 10^3/uL (150-450); RED BLOOD COUNT 4.61 10^6/uL (4.00-5.40); WHITE BLOOD COUNT 7.7 10^3/uL (4.0-10.0)
[2020-08-15 12:47] LABS: PERCENT SATURATION 18.4 % (13.2-45.0)
== END ==
LOC: M LAB 11:37
PROVIDERS: ATTEND Nurse Practitioner Adult Health
DX: D50.8 Other iron deficiency anemias (principal)

== ENCOUNTER 2020-08-21 11:29 | Outpatient (CLI) | payer OTHER, BC ==
[~2020-08-21] VITALS: Ht 165.1 cm; Wt 69.5 kg
[2020-08-21] MEDS ORDERED: IRON SUCROSE 500 MG in NS 250 ML OVER 4 HRS IV ONE (11:30)
[2020-08-21 11:41] VITALS: BP 132/65
[2020-08-21 12:20] VITALS: BP 111/74
[2020-08-21 13:18] VITALS: BP 110/66
[2020-08-21 14:20] VITALS: BP 107/60
[2020-08-21 16:08] VITALS: BP 99/68
[2020-08-21 16:25] VITALS: BP 103/73
== END 2020-08-21 16:25 | disposition home or self-care (01) ==
LOC: M INFU 11:29
PROVIDERS: ATTEND Internal Medicine
DX: D50.9 Iron deficiency anemia, unspecified (principal)
CPT/HCPCS: 96365; 96366; J1756

== ENCOUNTER → 2020-09-13 | Outpatient (CLI) | payer OTHER, BC ==
[2020-09-13 14:38] LABS: BASO # 0.1 10^3/uL (0.0-0.2); BASO % 0.8 % (0.0-1.0); EOS # 0.1 10^3/uL (0.0-0.5); EOS % 1.3 % (0.0-3.0); HEMATOCRIT 40.7 % (36.0-47.0); LYMPH # 2.6 10^3/uL (1.5-5.0); LYMPH % 36.2 % (24.0-44.0); MEAN CORPUSCULAR HEMOGLOBIN 26.1 pg (27.0-33.0); MEAN CORPUSCULAR HGB CONC 31.9 g/dl (32.0-36.5); MEAN CORPUSCULAR VOLUME 81.7 fl (80.0-96.0); MONO # 0.8 10^3/uL (0.0-0.8); MONO % 10.5 % (0.0-5.0); NEUTROPHILS # 3.6 10^3/uL (1.5-8.5); NEUTROPHILS % 51.1 % (36.0-66.0); PLATELET COUNT, AUTOMATED 280 10^3/uL (150-450); RED BLOOD COUNT 4.98 10^6/uL (4.00-5.40); WHITE BLOOD COUNT 7.1 10^3/uL (4.0-10.0)
[2020-09-13 15:16] LABS: PLATELET ESTIMATE NORMAL (NORMAL)
[2020-09-13 15:17] LABS: OVALOCYTES 1+; POIKILOCYTOSIS 1+
== END ==
LOC: M LAB 14:08
PROVIDERS: ATTEND Internal Medicine
DX: D50.8 Other iron deficiency anemias (principal)

== ENCOUNTER → 2020-09-19 | Outpatient (CLI) | payer OTHER, BC ==
[2020-09-19 10:17] LABS: PERCENT SATURATION 24.5 % (13.2-45.0)
== END ==
LOC: M LAB 09:18
PROVIDERS: ATTEND Internal Medicine
DX: Z86.39 Personal history of other endocrine, nutritional and metabolic disease (principal)

== ENCOUNTER → 2020-11-10 | Outpatient (REF) ==
[~2020-11-10] MED LIST changes: -MAG400TA PO; +MAGN400T35 PO
--- NOTE | 2020-11-10 14:21 | REPMRS ---
Patient History The patient states she had a clinical breast exam in 10/2020. Family history of breast cancer at age 40 in sister, breast cancer at age 44 in paternal cousin, colorectal cancer at age 50 or over in mother, prostate cancer at age 83 in father. Took unspecified hormones for 6 years. 3D TOMOSYNTHESIS WAS PERFORMED. [facility] lifetime risk for breast cancer is 13.9%. Volpara breast density b. Digital Woman Screen Mammo: November 10, 2020 - Exam #: [id number] Bilateral CC and MLO view(s) were taken. Technologist: Shante Grullon, Technologist Prior study comparison: July 03, 2018, bilateral digital woman screen mammo performed at [facility]. May 25, 2017, digital woman screen mammo performed at [facility]. FINDINGS: There are scattered fibroglandular densities. There has been no change in the appearance of the mammogram from the prior studies. There is a mild amount of residual fibroglandular tissue which is fairly symmetric. There is no interval development of dominant mass, architectural distortion, or clustered microcalcification suggestive of malignancy. Assessment: BI-RADS/ACR category 1 mammogram. Negative Mammogram. Recommendation Routine screening mammogram in 1 year (for women over age 40). This mammogram was interpreted with the aid of an FDA-approved computer-aided dectection system. Electronically Signed By: Husesin Ly MD 11/10/20 [id number]
== END ==
LOC: M WHC 13:21
PROVIDERS: ATTEND Advanced Practice Midwife
DX: Z12.31 Encounter for screening mammogram for malignant neoplasm of breast (principal)

== ENCOUNTER → 2020-12-06 | Outpatient (CLI) | payer OTHER, BC ==
[2020-12-06 10:21] LABS: BASO % 0.3 % (0.0-1.0); EOS # 0.1 10^3/uL (0.0-0.5); EOS % 0.7 % (0.0-3.0); HEMATOCRIT 42.9 % (36.0-47.0); HEMOGLOBIN 14.1 g/dl (12.0-15.5); LYMPH % 28.4 % (24.0-44.0); MEAN CORPUSCULAR HEMOGLOBIN 30.1 pg (27.0-33.0); MEAN CORPUSCULAR HGB CONC 32.9 g/dl (32.0-36.5); MEAN CORPUSCULAR VOLUME 91.7 fl (80.0-96.0); MONO # 0.6 10^3/uL (0.0-0.8); MONO % 9.1 % (2.0-8.0); NEUTROPHILS # 4.3 10^3/uL (1.5-8.5); NEUTROPHILS % 61.2 % (36.0-66.0); PLATELET COUNT, AUTOMATED 247 10^3/uL (150-450); RED BLOOD COUNT 4.68 10^6/uL (4.00-5.40)
[2020-12-06 10:47] LABS: ALBUMIN 3.7 GM/DL (3.2-5.2); ALT/SGPT 40 U/L (12-78); BILIRUBIN,TOTAL 0.4 MG/DL (0.2-1.0); BLOOD UREA NITROGEN 11 MG/DL (7-18); CALCIUM LEVEL 8.5 MG/DL (8.5-10.1); CARBON DIOXIDE LEVEL 26 MEQ/L (21-32); CHLORIDE LEVEL 106 MEQ/L (98-107); CHOLESTEROL LEVEL 140 MG/DL (<200); CREATININE FOR GFR 0.73 MG/DL (0.55-1.30); FERRITIN 19 NG/ML (8-252); GLOMERULAR FILTRATION RATE > 60.0 (>51); GLUCOSE, FASTING 118 MG/DL (70-100); HDL CHOLESTEROL 70 MG/DL (>40); IRON (FE) 116 UG/DL (50-170); LDL CHOLESTEROL 55 MG/DL (<100); NON-HDL-C 70 MG/DL; PERCENT SATURATION 36.9 % (13.2-45.0); POTASSIUM SERUM 4.2 MEQ/L (3.5-5.1); SODIUM LEVEL 140 MEQ/L (136-145); TOTAL IRON BINDING CAPACITY 314 UG/DL (250-450); TOTAL PROTEIN 6.6 GM/DL (6.4-8.2); TRIGLYCERIDES LEVEL 76 MG/DL (<150)
== END ==
LOC: M LAB 09:59
PROVIDERS: ATTEND Internal Medicine
DX: D50.8 Other iron deficiency anemias (principal); Z98.84 Bariatric surgery status

== ENCOUNTER → 2021-03-29 | Outpatient (CLI) | payer OTHER, BC ==
[~2021-03-29] MED LIST changes: -AMIT10TA PO; +AMIT10TA7 PO
[2021-03-29 06:51] LABS: BASO # 0.1 10^3/uL (0.0-0.2); BASO % 0.5 % (0.0-1.0); EOS # 0.1 10^3/uL (0.0-0.5); EOS % 1.1 % (0.0-3.0); HEMATOCRIT 44.5 % (36.0-47.0); HEMOGLOBIN 14.9 g/dl (12.0-15.5); LYMPH # 2.5 10^3/uL (1.5-5.0); LYMPH % 22.4 % (24.0-44.0); MEAN CORPUSCULAR HGB CONC 33.5 g/dl (32.0-36.5); MEAN CORPUSCULAR VOLUME 95.7 fl (80.0-96.0); MONO % 9.3 % (2.0-8.0); NEUTROPHILS # 7.3 10^3/uL (1.5-8.5); NEUTROPHILS % 66.2 % (36.0-66.0); PLATELET COUNT, AUTOMATED 273 10^3/uL (150-450); RED BLOOD COUNT 4.65 10^6/uL (4.00-5.40)
[2021-03-29 07:17] LABS: PERCENT SATURATION 22.9 % (13.2-45.0); THYROID STIMULATING HORMONE 2.08 uIU/ML (0.358-3.740)
== END ==
LOC: M LAB 06:05
PROVIDERS: ATTEND Internal Medicine
DX: D50.8 Other iron deficiency anemias (principal)

== ENCOUNTER 2021-04-10 06:15 | Emergency (ER) | payer OTHER, BC ==
[~2021-04-10] VITALS: Ht 167.6 cm; Wt 72.7 kg
[2021-04-10] MEDS ORDERED: PANT40TA29 (06:53)
[2021-04-10 06:57] LABS: BASO % 0.2 % (0.0-1.0); EOS # 0.1 10^3/uL (0.0-0.5); EOS % 0.7 % (0.0-3.0); HEMATOCRIT 43.9 % (36.0-47.0); HEMOGLOBIN 14.9 g/dl (12.0-15.5); LYMPH # 2.8 10^3/uL (1.5-5.0); LYMPH % 32.7 % (24.0-44.0); MEAN CORPUSCULAR HEMOGLOBIN 31.6 pg (27.0-33.0); MEAN CORPUSCULAR HGB CONC 33.9 g/dl (32.0-36.5); MEAN CORPUSCULAR VOLUME 93.2 fl (80.0-96.0); MONO # 0.7 10^3/uL (0.0-0.8); MONO % 8.3 % (2.0-8.0); NEUTROPHILS % 57.6 % (36.0-66.0); PLATELET COUNT, AUTOMATED 296 10^3/uL (150-450); RED BLOOD COUNT 4.71 10^6/uL (4.00-5.40); WHITE BLOOD COUNT 8.7 10^3/uL (4.0-10.0)
[2021-04-10 07:16] LABS: BLOOD UREA NITROGEN 11 MG/DL (7-18); CALCIUM LEVEL 9.2 MG/DL (8.5-10.1); CARBON DIOXIDE LEVEL 28 MEQ/L (21-32); CHLORIDE LEVEL 104 MEQ/L (98-107); CK-MB VALUE MASS 8.2 NG/ML (<3.6); CPK CREATINE PHOSPHOKINASE 679 U/L (26-192); GLOMERULAR FILTRATION RATE > 60.0 (>51); GLUCOSE, FASTING 108 MG/DL (70-100); MB/CK RELATIVE INDEX 1.21 (< OR =4); NT-PRO BNP 14 PG/ML (<125); POTASSIUM SERUM 3.9 MEQ/L (3.5-5.1); SODIUM LEVEL 139 MEQ/L (136-145); TROPONIN I < 0.02 NG/ML (< 0.10)
[2021-04-10] MEDS ORDERED: GI COCKTAIL 50ML BTL(HYOSCYAMINE/MAALOX/LIDOCAINE VISCOUS)(1:3:1) PO ONE (07:35)
--- NOTE | 2021-04-10 08:07 | ECGEPIP ---
[facility] - ED Test Date: 2021-04-10 Pat Name: AUSTIN MANZANO Department: Room: - Gender: Female Manager Photography: : 1960 Requested By: PRESTON GRANDA Order Number: [id number] Reading MD: Lloyd Tristan Measurements Intervals Witt Rate: 85 P: 51 MN: 152 QRS: 26 QRSD: 84 T: 47 QT: 360 QTc: 428 Interpretive Statements Normal sinus rhythm Nonspecific ST and T wave abnormality Similar to tracing done 05-11-20 Electronically Signed on 04-10-2021 8:07:37 EDT by Lloyd Tristan
[2021-04-10 08:15] LABS: ALBUMIN 3.6 GM/DL (3.2-5.2); ALT/SGPT 112 U/L (12-78); BILIRUBIN,DIRECT 0.1 MG/DL (0.0-0.2); BILIRUBIN,TOTAL 0.4 MG/DL (0.2-1.0); LIPASE 269 U/L (73-393); TOTAL PROTEIN 6.7 GM/DL (6.4-8.2)
--- NOTE | 2021-04-10 08:17 | REP ---
INDICATION: CHEST PAIN. COMPARISON: None. FINDINGS: The technique utilized in obtaining the radiograph has magnified the cardiac silhouette and accentuated the interstitial markings. The superior mediastinal structures are midline. The cardiac silhouette is unremarkable in size, shape, and position. The diaphragmatic surfaces of the lungs are regular, and the costophrenic angles are clear. The pulmonary peralta are clear. The imaged osseous structures are intact. IMPRESSION: There is no acute cardiopulmonary disease. <Electronically signed by Harpreet Lemus > 04/10/21 [id number]
[2021-04-10 10:48] LABS: CK-MB VALUE MASS 2.7 NG/ML (<3.6); CPK CREATINE PHOSPHOKINASE 175 U/L (26-192); MB/CK RELATIVE INDEX 1.54 (< OR =4); TROPONIN I < 0.02 NG/ML (< 0.10)
[2021-04-10 11:00] VITALS: BP 114/70
[2021-04-10] MEDS ORDERED: SUCR1TA PO (11:10)
--- NOTE | 2021-04-11 14:19 | ECGEPIP ---
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
== END 2021-04-10 11:26 | disposition home or self-care (01) ==
LOC: M ED 06:15
DX: R07.89 Other chest pain (principal); F90.9 Attention-deficit hyperactivity disorder, unspecified type; K21.9 Gastro-esophageal reflux disease without esophagitis; Z79.899 Other long term (current) drug therapy; Z79.82 Long term (current) use of aspirin; Z88.8 Allergy status to other drugs, medicaments and biological substances; Z91.040 Latex allergy status

== ENCOUNTER → 2021-08-22 | Outpatient (REF) ==
[~2021-08-22] MED LIST changes: +SUCR1TA PO
== END ==
LOC: M EMP 20:45 → EDSTATUS 08-23 16:02
PROVIDERS: ATTEND Family Medicine
DX: Z11.52 Encounter for screening for COVID-19 (principal)

== ENCOUNTER → 2021-08-22 | Outpatient (REF) | LOC: M LAB 20:37 | PROVIDERS: ATTEND Nurse Practitioner Adult Health | DX: Z11.52 Encounter for screening for COVID-19 (principal) ==

== ENCOUNTER → 2021-10-20 | Outpatient (REF) | payer OTHER, BC ==
[2021-10-20 14:28] LABS: APPEARANCE, URINE CLEAR (CLEAR); BACTERIA, URINE AUTO NEGATIVE (NEGATIVE); BILIRUBIN, URINE AUTO NEGATIVE (NEGATIVE); BLOOD, URINE BLOOD NEGATIVE (NEGATIVE); COLOR, URINE STRAW (YELLOW); GLUCOSE, URINE (UA) AUTO NEGATIVE (NEGATIVE); KETONE, URINE AUTO NEGATIVE (NEGATIVE); LEUKOCYTE ESTERASE, URINE AUTO NEGATIVE (NEGATIVE); NITRITE, URINE AUTO NEGATIVE (NEGATIVE); PROTEIN, URINE AUTO NEGATIVE (NEGATIVE); RBC, URINE AUTO 1 /HPF (0-3); SPECIFIC GRAVITY URINE AUTO 1.006 (1.002-1.035); SQUAMOUS EPITHELIAL CELL UR AU 1 /HPF (0-6); UROBILINOGEN, URINE AUTO 0.2 mg/dL (0.0-2.0); WBC, URINE AUTO 7 /HPF (0-3)
== END ==
LOC: M SFHCPLAZ 13:20
PROVIDERS: ATTEND Internal Medicine
DX: R30.0 Dysuria (principal)

== ENCOUNTER → 2021-11-19 | Outpatient (REF) | LOC: M LABSMTC 11:52 | PROVIDERS: ATTEND Family Medicine | DX: Z11.52 Encounter for screening for COVID-19 (principal) ==

== ENCOUNTER → 2021-11-22 | Outpatient (REF) ==
[~2021-11-22] MED LIST changes: -FLUC100T; +FLUC100T3
== END ==
LOC: M LABSMTC 09:57
PROVIDERS: ATTEND Family Medicine
DX: Z11.52 Encounter for screening for COVID-19 (principal)

== ENCOUNTER → 2021-12-10 | Outpatient (CLI) | payer BC ==
[2021-12-10 09:30] LABS: HEMATOCRIT 42.8 % (36.0-47.0); HEMOGLOBIN 14.2 g/dl (12.0-15.5); MEAN CORPUSCULAR HEMOGLOBIN 30.8 pg (27.0-33.0); MEAN CORPUSCULAR HGB CONC 33.2 g/dl (32.0-36.5); MEAN CORPUSCULAR VOLUME 92.8 fl (80.0-96.0); PLATELET COUNT, AUTOMATED 313 10^3/uL (150-450); RED BLOOD COUNT 4.61 10^6/uL (4.00-5.40); WHITE BLOOD COUNT 7.7 10^3/uL (4.0-10.0)
[2021-12-10 09:43] LABS: ALBUMIN 3.4 GM/DL (3.2-5.2); ALT/SGPT 40 U/L (12-78); BILIRUBIN,TOTAL 0.5 MG/DL (0.2-1.0); BLOOD UREA NITROGEN 17 MG/DL (7-18); CALCIUM LEVEL 8.8 MG/DL (8.5-10.1); CARBON DIOXIDE LEVEL 28 MEQ/L (21-32); CHLORIDE LEVEL 109 MEQ/L (98-107); CREATININE FOR GFR 0.61 MG/DL (0.55-1.30); FERRITIN 32 NG/ML (8-252); GLOMERULAR FILTRATION RATE > 60.0 (>51); GLUCOSE, FASTING 85 MG/DL (70-100); IRON (FE) 78 UG/DL (50-170); PERCENT SATURATION 30.4 % (13.2-45.0); SODIUM LEVEL 144 MEQ/L (136-145); TOTAL IRON BINDING CAPACITY 257 UG/DL (250-450); TOTAL PROTEIN 6.5 GM/DL (6.4-8.2)
[2021-12-10 13:11] LABS: VITAMIN B12 LEVEL 1803 PG/ML (247-911)
== END ==
LOC: M PLALAB 07:11
PROVIDERS: ATTEND Nurse Practitioner Adult Health
DX: Z98.84 Bariatric surgery status (principal)

== ENCOUNTER → 2021-12-10 | Outpatient (CLI) | payer BC ==
[2021-12-10 09:30] LABS: BASO # 0.1 10^3/uL (0.0-0.2); BASO % 0.6 % (0.0-1.0); EOS # 0.2 10^3/uL (0.0-0.5); EOS % 2.6 % (0.0-3.0); HEMATOCRIT 41.7 % (36.0-47.0); HEMOGLOBIN 13.9 g/dl (12.0-15.5); MEAN CORPUSCULAR HEMOGLOBIN 30.9 pg (27.0-33.0); MEAN CORPUSCULAR HGB CONC 33.3 g/dl (32.0-36.5); MEAN CORPUSCULAR VOLUME 92.7 fl (80.0-96.0); MONO # 0.6 10^3/uL (0.0-0.8); MONO % 7.9 % (2.0-8.0); NEUTROPHILS # 4.8 10^3/uL (1.5-8.5); NEUTROPHILS % 62.4 % (36.0-66.0); PLATELET COUNT, AUTOMATED 311 10^3/uL (150-450); WHITE BLOOD COUNT 7.7 10^3/uL (4.0-10.0)
[2021-12-10 09:38] LABS: PERCENT SATURATION 28.7 % (13.2-45.0)
== END ==
LOC: M PLALAB 07:13
PROVIDERS: ATTEND Orthopaedic Surgery
DX: M25.562 Pain in left knee (principal)

== ENCOUNTER → 2021-12-10 | Outpatient (CLI) | payer BC ==
[2021-12-10 09:30] LABS: HEMATOCRIT 42.7 % (36.0-47.0); HEMOGLOBIN 14.2 g/dl (12.0-15.5); MEAN CORPUSCULAR HGB CONC 33.3 g/dl (32.0-36.5); MEAN CORPUSCULAR VOLUME 93.2 fl (80.0-96.0); PLATELET COUNT, AUTOMATED 306 10^3/uL (150-450); RED BLOOD COUNT 4.58 10^6/uL (4.00-5.40); WHITE BLOOD COUNT 7.6 10^3/uL (4.0-10.0)
[2021-12-10 09:34] LABS: BLOOD UREA NITROGEN 19 MG/DL (7-18); CALCIUM LEVEL 8.8 MG/DL (8.5-10.1); CARBON DIOXIDE LEVEL 29 MEQ/L (21-32); CHLORIDE LEVEL 108 MEQ/L (98-107); CREATININE FOR GFR 0.67 MG/DL (0.55-1.30); GLOMERULAR FILTRATION RATE > 60.0 (>51); GLUCOSE, FASTING 84 MG/DL (70-100); MAGNESIUM LEVEL 2.2 MG/DL (1.8-2.4); SODIUM LEVEL 142 MEQ/L (136-145)
[2021-12-10 13:32] LABS: TOTAL 25(OH) VITAMIN D 60.2 NG/ML (30.0-100.0); VITAMIN B12 LEVEL 1509 PG/ML (247-911)
== END ==
LOC: M PLALAB 07:16
PROVIDERS: ATTEND Student in an Organized Health Care Education/Training Program
DX: R12 Heartburn (principal)

== ENCOUNTER → 2022-02-01 | Outpatient (CLI) | payer BC ==
[2022-02-01 10:33] LABS: BASO % 0.5 % (0.0-1.0); EOS # 0.2 10^3/uL (0.0-0.5); EOS % 2.8 % (0.0-3.0); HEMATOCRIT 42.1 % (36.0-47.0); HEMOGLOBIN 14.2 g/dl (12.0-15.5); LYMPH # 1.9 10^3/uL (1.5-5.0); LYMPH % 24.3 % (24.0-44.0); MEAN CORPUSCULAR HEMOGLOBIN 31.7 pg (27.0-33.0); MEAN CORPUSCULAR HGB CONC 33.7 g/dl (32.0-36.5); MONO # 0.7 10^3/uL (0.0-0.8); MONO % 9.2 % (2.0-8.0); NEUTROPHILS % 62.7 % (36.0-66.0); PLATELET COUNT, AUTOMATED 290 10^3/uL (150-450); RED BLOOD COUNT 4.48 10^6/uL (4.00-5.40); WHITE BLOOD COUNT 7.9 10^3/uL (4.0-10.0)
[2022-02-01 10:46] LABS: INR 0.97; PROTHROMBIN TIME 13.3 SECONDS (12.7-14.5)
[2022-02-01 10:47] LABS: PARTIAL THROMBOPLASTIN TIME 30.7 SECONDS (25.9-37.0)
[2022-02-01 10:58] LABS: ALBUMIN 3.6 GM/DL (3.2-5.2); ALT/SGPT 52 U/L (12-78); BILIRUBIN,TOTAL 0.4 MG/DL (0.2-1.0); BLOOD UREA NITROGEN 19 MG/DL (7-18); CARBON DIOXIDE LEVEL 30 MEQ/L (21-32); CHLORIDE LEVEL 108 MEQ/L (98-107); CREATININE FOR GFR 0.56 MG/DL (0.55-1.30); GLOMERULAR FILTRATION RATE > 60.0 (>45); GLUCOSE, FASTING 77 MG/DL (70-100); POTASSIUM SERUM 4.6 MEQ/L (3.5-5.1); SODIUM LEVEL 142 MEQ/L (136-145); TOTAL PROTEIN 6.4 GM/DL (6.4-8.2)
[2022-02-01 12:26] LABS: APPEARANCE, URINE CLEAR (CLEAR); BACTERIA, URINE AUTO NEGATIVE (NEGATIVE); BILIRUBIN, URINE AUTO NEGATIVE (NEGATIVE); BLOOD, URINE BLOOD NEGATIVE (NEGATIVE); COLOR, URINE YELLOW (YELLOW); GLUCOSE, URINE (UA) AUTO NEGATIVE (NEGATIVE); KETONE, URINE AUTO NEGATIVE (NEGATIVE); LEUKOCYTE ESTERASE, URINE AUTO NEGATIVE (NEGATIVE); MUCUS, URINE SMALL (NEGATIVE); NITRITE, URINE AUTO NEGATIVE (NEGATIVE); PROTEIN, URINE AUTO NEGATIVE (NEGATIVE); RBC, URINE AUTO 1 /HPF (0-3); SPECIFIC GRAVITY URINE AUTO 1.013 (1.002-1.035); SQUAMOUS EPITHELIAL CELL UR AU 1 /HPF (0-6); UROBILINOGEN, URINE AUTO 0.2 mg/dL (0.0-2.0); WBC, URINE AUTO 0 /HPF (0-3)
== END ==
LOC: M PLALAB 08:49
PROVIDERS: ATTEND Internal Medicine
DX: Z01.818 Encounter for other preprocedural examination (principal)

== ENCOUNTER → 2022-02-10 | Outpatient (CLI) | payer BC | LOC: M RAD 08:22 | PROVIDERS: ATTEND Surgery Vascular Surgery | DX: K55.1 Chronic vascular disorders of intestine (principal) ==

== ENCOUNTER → 2022-02-18 | Outpatient (REF) ==
[2022-02-18 11:20] LABS: RSV AMPLIFICATION NEGATIVE (NEGATIVE)
== END ==
LOC: M LABSMTC 09:41
PROVIDERS: ATTEND Family Medicine
DX: Z11.52 Encounter for screening for COVID-19 (principal)

== ENCOUNTER → 2022-04-18 | Outpatient (CLI) | payer BC | LOC: M LABSMTC 10:55 | PROVIDERS: ATTEND Orthopaedic Surgery | DX: Z11.52 Encounter for screening for COVID-19 (principal) ==

== ENCOUNTER → 2022-04-19 | Outpatient (REF) | LOC: EDSTATUS 04-18 15:00 → M WHC 14:26 | PROVIDERS: ATTEND Advanced Practice Midwife | DX: Z12.31 Encounter for screening mammogram for malignant neoplasm of breast (principal) ==

== ENCOUNTER → 2022-08-15 | Outpatient (CLI) | payer BC ==
[2022-08-15 13:11] LABS: BASO # 0.1 10^3/uL (0.0-0.2); BASO % 0.8 % (0.0-1.0); EOS # 0.1 10^3/uL (0.0-0.5); EOS % 1.9 % (0.0-3.0); HEMATOCRIT 43.6 % (36.0-47.0); HEMOGLOBIN 14.6 g/dl (12.0-15.5); LYMPH # 2.4 10^3/uL (1.5-5.0); LYMPH % 33.5 % (24.0-44.0); MEAN CORPUSCULAR HEMOGLOBIN 30.4 pg (27.0-33.0); MEAN CORPUSCULAR HGB CONC 33.5 g/dl (32.0-36.5); MEAN CORPUSCULAR VOLUME 90.6 fl (80.0-96.0); MONO # 0.7 10^3/uL (0.0-0.8); MONO % 9.3 % (2.0-8.0); NEUTROPHILS # 3.9 10^3/uL (1.5-8.5); NEUTROPHILS % 54.1 % (36.0-66.0); PLATELET COUNT, AUTOMATED 271 10^3/uL (150-450); RED BLOOD COUNT 4.81 10^6/uL (4.00-5.40); WHITE BLOOD COUNT 7.3 10^3/uL (4.0-10.0)
[2022-08-15 13:52] LABS: ALBUMIN 3.9 GM/DL (3.2-5.2); ALT/SGPT 37 U/L (12-78); BILIRUBIN,TOTAL 0.4 MG/DL (0.2-1.0); BLOOD UREA NITROGEN 9 MG/DL (7-18); CALCIUM LEVEL 9.2 MG/DL (8.8-10.2); CARBON DIOXIDE LEVEL 29 MEQ/L (21-32); CHLORIDE LEVEL 103 MEQ/L (98-107); CHOLESTEROL LEVEL 134 MG/DL (<200); CHOLESTEROL RISK RATIO 2.196 (<5); CREATININE FOR GFR 0.66 MG/DL (0.55-1.30); FERRITIN 24 NG/ML (8-252); GLOMERULAR FILTRATION RATE > 60.0 (>45); GLUCOSE, FASTING 104 MG/DL (70-100); HDL CHOLESTEROL 61 MG/DL (>40); IRON (FE) 76 UG/DL (50-170); LDL CHOLESTEROL 55 MG/DL (<100); NON-HDL-C 73 MG/DL; POTASSIUM SERUM 3.9 MEQ/L (3.5-5.1); SODIUM LEVEL 137 MEQ/L (136-145); TOTAL PROTEIN 6.9 GM/DL (6.4-8.2); TRIGLYCERIDES LEVEL 88 MG/DL (<150)
[2022-08-15 14:23] LABS: TOTAL 25(OH) VITAMIN D 44.2 NG/ML (30.0-100.0); VITAMIN B12 LEVEL 1012 PG/ML (247-911)
== END ==
LOC: M LAB 12:41
PROVIDERS: ATTEND Registered Nurse
DX: Z00.00 Encounter for general adult medical examination without abnormal findings (principal); D50.9 Iron deficiency anemia, unspecified; Z98.84 Bariatric surgery status

== ENCOUNTER → 2023-01-09 | Outpatient (REF) | payer BC ==
[2023-01-09 19:16] LABS: APPEARANCE, URINE CLEAR (CLEAR); BACTERIA, URINE AUTO NEGATIVE (NEGATIVE); BILIRUBIN, URINE AUTO NEGATIVE (NEGATIVE); BLOOD, URINE BLOOD NEGATIVE (NEGATIVE); COLOR, URINE YELLOW (YELLOW); GLUCOSE, URINE (UA) AUTO NEGATIVE (NEGATIVE); KETONE, URINE AUTO NEGATIVE (NEGATIVE); LEUKOCYTE ESTERASE, URINE AUTO NEGATIVE (NEGATIVE); MUCUS, URINE SMALL (NEGATIVE); NITRITE, URINE AUTO NEGATIVE (NEGATIVE); PROTEIN, URINE AUTO NEGATIVE (NEGATIVE); RBC, URINE AUTO 3 /HPF (0-3); SPECIFIC GRAVITY URINE AUTO 1.015 (1.002-1.035); SQUAMOUS EPITHELIAL CELL UR AU 0 /HPF (0-6); UROBILINOGEN, URINE AUTO 0.2 mg/dL (0.0-2.0); WBC, URINE AUTO 0 /HPF (0-3)
== END ==
LOC: M SFHCWAGY 17:48
PROVIDERS: ATTEND Advanced Practice Midwife
DX: R30.0 Dysuria (principal)

== ENCOUNTER → 2023-09-07 | Outpatient (CLI) | payer BC ==
[2023-09-07 11:34] LABS: HEMATOCRIT 43.8 % (36.0-47.0); HEMOGLOBIN 14.2 g/dl (12.0-15.5); MEAN CORPUSCULAR HEMOGLOBIN 30.3 pg (27.0-33.0); MEAN CORPUSCULAR HGB CONC 32.4 g/dl (32.0-36.5); MEAN CORPUSCULAR VOLUME 93.4 fl (80.0-96.0); PLATELET COUNT, AUTOMATED 306 10^3/uL (150-450); RED BLOOD COUNT 4.69 10^6/uL (4.00-5.40); WHITE BLOOD COUNT 7.3 10^3/uL (4.0-10.0)
[2023-09-07 11:44] LABS: HEMOGLOBIN A1c 5.3 % (4.0-6.0)
[2023-09-07 11:55] LABS: C REACTIVE PROTEIN QUANTITATIV < 0.40 MG/DL (<1.0); IRON (FE) 60 UG/DL (50-170); PERCENT SATURATION 18.6 % (13.2-45.0); TOTAL IRON BINDING CAPACITY 323 UG/DL (250-425)
[2023-09-07 11:57] LABS: ALBUMIN 3.6 G/DL (3.2-5.2); ALKALINE PHOSPHATASE 73 U/L (46-116); ALT/SGPT 45 U/L (7.0-40); AST/SGOT 28 U/L (<34); BILIRUBIN,TOTAL 0.5 MG/DL (0.3-1.2); BLOOD UREA NITROGEN 17 MG/DL (9-23); CALCIUM LEVEL 9.1 MG/DL (8.3-10.6); CARBON DIOXIDE LEVEL 32 MMOL/L (20-31); CHLORIDE LEVEL 108 MMOL/L (98-107); CHOLESTEROL LEVEL 151 MG/DL (<200); CHOLESTEROL RISK RATIO 2.28 (<5); CREATININE FOR GFR 0.69 MG/DL (0.55-1.30); CREATININE, URINE 62.3 MG/DL; GLOMERULAR FILTRATION RATE > 60.0 (>45); GLUCOSE, FASTING 75 MG/DL (74-106); HDL CHOLESTEROL 66.1 MG/DL (>40); LDL CHOLESTEROL 66.3 MG/DL (<100); MAU/CREAT RATIO 6.4 MCG/MG (0.0-30.0); NON-HDL-C 84.9 MG/DL; POTASSIUM SERUM 4.7 MMOL/L (3.5-5.1); SODIUM LEVEL 145 MMOL/L (136-145); TOTAL PROTEIN 6.2 G/DL (5.7-8.2); TRIGLYCERIDES LEVEL 93 MG/DL (<150)
[2023-09-07 12:00] LABS: THYROID STIMULATING HORMONE 1.467 uIU/ML (0.55-4.78); TOTAL 25(OH) VITAMIN D 36.4 NG/ML (20.0-100.0)
[2023-09-07 12:01] LABS: FERRITIN 13.6 NG/ML (7.3-270.7)
[2023-09-07 12:04] LABS: FREE T4 1.01 NG/DL (0.89-1.76)
[2023-09-07 12:05] LABS: VITAMIN B12 LEVEL 1133 PG/ML (211-911)
== END ==
LOC: M PLALAB 07:15
PROVIDERS: ATTEND Internal Medicine Hematology
DX: Z98.84 Bariatric surgery status (principal)

== ENCOUNTER → 2023-09-28 | Outpatient (CLI) | payer BC | LOC: M RAD 09:15 | PROVIDERS: ATTEND Physician Assistant | DX: I72.8 Aneurysm of other specified arteries (principal) ==

== ENCOUNTER → 2023-10-02 | Outpatient (REF) | LOC: M EMP 08:41 | PROVIDERS: ATTEND Family Medicine | DX: Z11.52 Encounter for screening for COVID-19 (principal) ==

== ENCOUNTER → 2023-10-03 | Outpatient (REF) | payer BC | LOC: M LAB REF 13:06 | PROVIDERS: ATTEND Obstetrics & Gynecology Female Pelvic Medicine and Reconstructive Surgery | DX: N30.00 Acute cystitis without hematuria (principal) ==

== ENCOUNTER → 2024-03-14 | Outpatient (CLI) | payer BC ==
[2024-03-14 10:02] LABS: BASO # 0.1 10^3/uL (0.0-0.2); EOS # 0.2 10^3/uL (0.0-0.5); EOS % 4.9 % (0.0-3.0); HEMATOCRIT 42.8 % (36.0-47.0); HEMOGLOBIN 14.3 g/dl (12.0-15.5); LYMPH # 2.1 10^3/uL (1.5-5.0); LYMPH % 43.6 % (24.0-44.0); MEAN CORPUSCULAR HGB CONC 33.4 g/dl (32.0-36.5); MEAN CORPUSCULAR VOLUME 89.9 fl (80.0-96.0); MONO # 0.6 10^3/uL (0.0-0.8); MONO % 12.6 % (2.0-8.0); NEUTROPHILS # 1.9 10^3/uL (1.5-8.5); NEUTROPHILS % 37.7 % (36.0-66.0); PLATELET COUNT, AUTOMATED 254 10^3/uL (150-450); RED BLOOD COUNT 4.76 10^6/uL (4.00-5.40); WHITE BLOOD COUNT 4.9 10^3/uL (4.0-10.0)
[2024-03-14 10:17] LABS: HEMOGLOBIN A1c 5.3 % (4.0-6.0)
[2024-03-14 10:21] LABS: C REACTIVE PROTEIN QUANTITATIV < 0.40 MG/DL (<1.0)
[2024-03-14 10:22] LABS: IRON (FE) 69 UG/DL (50-170)
[2024-03-14 10:23] LABS: ALBUMIN 3.7 G/DL (3.2-5.2); ALKALINE PHOSPHATASE 67 U/L (46-116); ALT/SGPT 57 U/L (7.0-40); AST/SGOT 36 U/L (<34); BILIRUBIN,TOTAL 0.6 MG/DL (0.3-1.2); BLOOD UREA NITROGEN 17 MG/DL (9-23); CALCIUM LEVEL 8.9 MG/DL (8.3-10.6); CARBON DIOXIDE LEVEL 29 MMOL/L (20-31); CHLORIDE LEVEL 105 MMOL/L (98-107); CHOLESTEROL LEVEL 132 MG/DL (<200); CHOLESTEROL RISK RATIO 2.15 (<5); CREATININE FOR GFR 0.68 MG/DL (0.55-1.30); GLOMERULAR FILTRATION RATE > 60.0 (>45); GLUCOSE, FASTING 82 MG/DL (74-106); HDL CHOLESTEROL 61.3 MG/DL (>40); LDL CHOLESTEROL 57.7 MG/DL (<100); NON-HDL-C 70.7 MG/DL; POTASSIUM SERUM 3.9 MMOL/L (3.5-5.1); SODIUM LEVEL 140 MMOL/L (136-145); TOTAL PROTEIN 5.9 G/DL (5.7-8.2); TRIGLYCERIDES LEVEL 65 MG/DL (<150)
[2024-03-14 10:33] LABS: FERRITIN 17.6 NG/ML (7.3-270.7); FREE T4 0.97 NG/DL (0.89-1.76); THYROID STIMULATING HORMONE 1.856 uIU/ML (0.55-4.78); TOTAL 25(OH) VITAMIN D 45.9 NG/ML (20.0-100.0)
[2024-03-14 10:34] LABS: CREATININE, URINE 84.1 MG/DL; MALB URINE SIEMENS < 3.0 MG/L; MAU/CREAT RATIO 3.5 MCG/MG (0.0-30.0); VITAMIN B12 LEVEL 968 PG/ML (211-911)
== END ==
LOC: M PLALAB 07:44
PROVIDERS: ATTEND Internal Medicine Hematology
DX: E78.5 Hyperlipidemia, unspecified (principal)

== ENCOUNTER → 2024-09-06 | Outpatient (CLI) | payer BC ==
[2024-09-06 07:42] LABS: HEMATOCRIT 42.2 % (36.0-47.0); HEMOGLOBIN 13.8 g/dl (12.0-15.5); MEAN CORPUSCULAR HEMOGLOBIN 30.1 pg (27.0-33.0); MEAN CORPUSCULAR HGB CONC 32.7 g/dl (32.0-36.5); MEAN CORPUSCULAR VOLUME 91.9 fl (80.0-96.0); PLATELET COUNT, AUTOMATED 270 10^3/uL (150-450); RED BLOOD COUNT 4.59 10^6/uL (4.00-5.40)
[2024-09-06 08:01] LABS: ALBUMIN 3.6 G/DL (3.2-5.2); ALKALINE PHOSPHATASE 74 U/L (35-104); ALT/SGPT 39 U/L (7.0-40); AST/SGOT 31 U/L (<34); BILIRUBIN,TOTAL 0.5 MG/DL (0.3-1.2); BLOOD UREA NITROGEN 16 MG/DL (9-23); CALCIUM LEVEL 9.5 MG/DL (8.3-10.6); CARBON DIOXIDE LEVEL 30 MMOL/L (20-31); CHLORIDE LEVEL 107 MMOL/L (98-107); CHOLESTEROL LEVEL 145 MG/DL (<200); CHOLESTEROL RISK RATIO 2.21 (<5); CREATININE FOR GFR 0.73 MG/DL (0.55-1.30); GLOMERULAR FILTRATION RATE > 60.0 (>45); GLUCOSE, FASTING 77 MG/DL (74-106); HDL CHOLESTEROL 65.4 MG/DL (>40); IRON (FE) 59 UG/DL (50-170); LDL CHOLESTEROL 64.2 MG/DL (<100); MAGNESIUM LEVEL 2.1 MG/DL (1.8-2.4); NON-HDL-C 79.6 MG/DL; PERCENT SATURATION 18.3 % (13.2-45.0); PHOSPHORUS LEVEL 4.3 MG/DL (2.4-5.1); SODIUM LEVEL 143 MMOL/L (136-145); TOTAL IRON BINDING CAPACITY 322 UG/DL (250-425); TOTAL PROTEIN 6.5 G/DL (5.7-8.2); TRIGLYCERIDES LEVEL 77 MG/DL (<150)
[2024-09-06 08:03] LABS: PTH INTACT 43.3 PG/ML (18.5-88.0)
[2024-09-06 08:04] LABS: TOTAL 25(OH) VITAMIN D 30.8 NG/ML (20.0-100.0)
[2024-09-06 08:05] LABS: FERRITIN 11.2 NG/ML (7.3-270.7); FOLATE 12.4 NG/ML (>5.4); VITAMIN B12 LEVEL 974 PG/ML (211-911)
[2024-09-10 23:53] LABS: VITAMIN B6,PYRIDOXAL PHOSPHATE 22.5 ng/mL (2.1-21.7)
== END ==
LOC: M LAB 06:21
PROVIDERS: ATTEND Student in an Organized Health Care Education/Training Program
DX: Z98.84 Bariatric surgery status (principal)

== ENCOUNTER → 2024-10-17 | Outpatient (REF) | payer BC ==
[2024-10-27 06:36] LABS: COPPER, RBC 0.68 ug/mL (0.50-1.00)
== END ==
LOC: M LAB REF 14:28
PROVIDERS: ATTEND Student in an Organized Health Care Education/Training Program
DX: Z98.84 Bariatric surgery status (principal)

== ENCOUNTER 2025-01-27 08:29 | Inpatient (IN) | payer BC ==
[2025-01-27] VITALS (7 sets, daily range): BP systolic 98–113; BP diastolic 63–72; TEMP 96.1–98.3; O2SAT 94–97
[~2025-01-27] VITALS: Ht 165.1 cm; Wt 81.1 kg
[~2025-01-27 08:29] MED LIST changes: +PANT40TA29 PO
[2025-01-27] MEDS ORDERED: TOBR0.3S37 (09:08)
[2025-01-27] MEDS ORDERED: VARE0.03 (09:08)
[2025-01-27 09:33] LABS: BASO % 0.4 % (0.0-1.0); EOS % 0.4 % (0.0-3.0); HEMATOCRIT 25.6 % (36.0-47.0); HEMOGLOBIN 8.4 g/dl (12.0-15.5); LYMPH # 1.6 10^3/uL (1.5-5.0); LYMPH % 15.4 % (24.0-44.0); MEAN CORPUSCULAR HEMOGLOBIN 29.2 pg (27.0-33.0); MEAN CORPUSCULAR HGB CONC 32.8 g/dl (32.0-36.5); MEAN CORPUSCULAR VOLUME 88.9 fl (80.0-96.0); MONO # 0.5 10^3/uL (0.0-0.8); MONO % 5.1 % (2.0-8.0); NEUTROPHILS # 8.1 10^3/uL (1.5-8.5); NEUTROPHILS % 78.2 % (36.0-66.0); PLATELET COUNT, AUTOMATED 296 10^3/uL (150-450); RED BLOOD COUNT 2.88 10^6/uL (4.00-5.40); WHITE BLOOD COUNT 10.4 10^3/uL (4.0-10.0)
[2025-01-27 09:39] LABS: INR 0.96; PARTIAL THROMBOPLASTIN TIME 23.4 SECONDS (24.8-34.2); PROTHROMBIN TIME 13.1 SECONDS (12.5-14.5)
[2025-01-27] MEDS ORDERED: ISOVUE-370 76% 100ML VIAL As Ordered ONE (09:57)
[2025-01-27 14:56] LABS: IRON (FE) 15 UG/DL (50-170); PERCENT SATURATION 4.4 % (13.2-45.0); TOTAL IRON BINDING CAPACITY 342 UG/DL (250-425)
[2025-01-27 14:57] LABS: FERRITIN 2.8 NG/ML (7.3-270.7); FOLATE 10.26 NG/ML (>5.4)
[2025-01-27 14:58] LABS: VITAMIN B12 LEVEL 728 PG/ML (211-911)
[2025-01-27] MEDS: PANTOPRAZOLE SODIUM 40 MG in D5W 50 ML IV SCH (16:29)
[2025-01-27] MEDS: PANTOPRAZOLE 40MG VIAL IV ONE (16:29)
[2025-01-27] MEDS ORDERED: ACETAMINOPHEN 325 MG TAB PO PRN (18:05)
[2025-01-27 18:48] LABS: ALBUMIN 3.1 G/DL (3.2-5.2); ALKALINE PHOSPHATASE 55 U/L (35-104); ALT/SGPT 29 U/L (7.0-40); AST/SGOT 26 U/L (<34); BILIRUBIN,TOTAL 0.4 MG/DL (0.3-1.2); BLOOD UREA NITROGEN 16 MG/DL (9-23); CALCIUM LEVEL 8.6 MG/DL (8.3-10.6); CARBON DIOXIDE LEVEL 28 MMOL/L (20-31); CHLORIDE LEVEL 109 MMOL/L (98-107); CREATININE FOR GFR 0.62 MG/DL (0.55-1.30); GLOMERULAR FILTRATION RATE > 60.0 (>45); GLUCOSE, FASTING 88 MG/DL (74-106); POTASSIUM SERUM 3.9 MMOL/L (3.5-5.1); SODIUM LEVEL 144 MMOL/L (136-145); TOTAL PROTEIN 5.6 G/DL (5.7-8.2)
[2025-01-27] MEDS: NS (Normal Saline) 0.9% 1,000 ML IV SCH (18:52)
[2025-01-27] MEDS: SUCRALFATE SUSP 1GM/10ML UD PO SCH (18:52)
[2025-01-27] MEDS ORDERED: COQ150CH PO (20:09)
[2025-01-27] MEDS ORDERED: OCUVTAB4 PO (20:09)
[2025-01-27] MEDS ORDERED: MULTTAB61 PO (20:09)
[2025-01-27] MEDS ORDERED: VAGI10TA VG (20:09)
[2025-01-27] MEDS ORDERED: PRAV40TA2 PO (20:09)
[2025-01-27] MEDS ORDERED: REST0.05 OU (20:09)
[2025-01-27] MEDS ORDERED: HOME MED LIST COMPLETE! XX SCH (20:10)
[2025-01-28 02:14] LABS: HEMATOCRIT 27.1 % (36.0-47.0); HEMOGLOBIN 9.2 g/dl (12.0-15.5); MEAN CORPUSCULAR HEMOGLOBIN 30.1 pg (27.0-33.0); MEAN CORPUSCULAR HGB CONC 33.9 g/dl (32.0-36.5); MEAN CORPUSCULAR VOLUME 88.6 fl (80.0-96.0); PLATELET COUNT, AUTOMATED 250 10^3/uL (150-450); RED BLOOD COUNT 3.06 10^6/uL (4.00-5.40); WHITE BLOOD COUNT 7.4 10^3/uL (4.0-10.0)
[2025-01-28 07:21] LABS: HEMOGLOBIN 9.7 g/dl (12.0-15.5); MEAN CORPUSCULAR HEMOGLOBIN 29.6 pg (27.0-33.0); MEAN CORPUSCULAR HGB CONC 33.4 g/dl (32.0-36.5); MEAN CORPUSCULAR VOLUME 88.4 fl (80.0-96.0); PLATELET COUNT, AUTOMATED 251 10^3/uL (150-450); RED BLOOD COUNT 3.28 10^6/uL (4.00-5.40); WHITE BLOOD COUNT 6.8 10^3/uL (4.0-10.0)
[2025-01-28 07:35] LABS: BLOOD UREA NITROGEN 14 MG/DL (9-23); CALCIUM LEVEL 8.3 MG/DL (8.3-10.6); CARBON DIOXIDE LEVEL 26 MMOL/L (20-31); CHLORIDE LEVEL 111 MMOL/L (98-107); CREATININE FOR GFR 0.63 MG/DL (0.55-1.30); GLOMERULAR FILTRATION RATE > 60.0 (>45); GLUCOSE, FASTING 86 MG/DL (74-106); MAGNESIUM LEVEL 2.1 MG/DL (1.8-2.4); POTASSIUM SERUM 3.8 MMOL/L (3.5-5.1); SODIUM LEVEL 145 MMOL/L (136-145)
[2025-01-28 08:28] VITALS: TEMP 97.2
[2025-01-28] MEDS: ACETAMINOPHEN *IV* 1,000 MG in IV 1 EA IV ONE (08:57)
[2025-01-28] MEDS: ASPIRIN 81MG CHEW TABLET PO SCH (11:36)
[2025-01-28] MEDS: PRAVASTATIN 20 MG TAB PO SCH (11:36)
[2025-01-28] MEDS: PANTOPRAZOLE 40MG VIAL IV SCH (11:36)
[2025-01-28 14:19] LABS: HEMATOCRIT 28.6 % (36.0-47.0); HEMOGLOBIN 9.6 g/dl (12.0-15.5)
[2025-01-28] MEDS ORDERED: SUCR1TA PO (15:07)
[2025-01-28] MEDS ORDERED: PANT40TA29 PO (15:07)
[2025-01-28] MEDS: FERRIC CARBOXYMALTOSE INJ 750 MG, VIAL MATE ADAPTER 1 EACH in NS 100 ML IV ONE (15:21)
[2025-01-28 15:55] VITALS: BP 96/51; O2SAT 93
== END 2025-01-28 16:12 | disposition home or self-care (01) | DRG 663 ==
LOC: M ED 08:29 → M ED INP 17:19
PROVIDERS: ADMIT Internal Medicine; ATTEND Internal Medicine
PROC: 30233N1 Transfusion of Nonautologous Red Blood Cells into Peripheral Vein, Percutaneous Approach (ICD-10-PCS; principal; 2025-01-27)
DX: D62 Acute posthemorrhagic anemia (principal); K92.2 Gastrointestinal hemorrhage, unspecified; F90.9 Attention-deficit hyperactivity disorder, unspecified type; K21.9 Gastro-esophageal reflux disease without esophagitis; D50.9 Iron deficiency anemia, unspecified; G47.33 Obstructive sleep apnea (adult) (pediatric); Z96.651 Presence of right artificial knee joint; Z79.82 Long term (current) use of aspirin; Z79.899 Other long term (current) drug therapy; Z88.8 Allergy status to other drugs, medicaments and biological substances; Z91.040 Latex allergy status; Z86.73 Personal history of transient ischemic attack (TIA), and cerebral infarction without residual deficits; Z98.84 Bariatric surgery status

== ENCOUNTER → 2025-01-31 | Outpatient (CLI) | payer BC ==
[~2025-01-31] MED LIST changes: +COQ150CH PO; +MULTTAB61 PO; +OCUVTAB4 PO; +PRAV40TA2 PO; +REST0.05 OU; +TOBR0.3S37; +VAGI10TA VG; +VARE0.03
[2025-01-31 10:52] LABS: BASO % 0.6 % (0.0-1.0); EOS # 0.2 10^3/uL (0.0-0.5); EOS % 2.2 % (0.0-3.0); HEMATOCRIT 31.1 % (36.0-47.0); HEMOGLOBIN 9.9 g/dl (12.0-15.5); LYMPH # 1.9 10^3/uL (1.5-5.0); LYMPH % 28.6 % (24.0-44.0); MEAN CORPUSCULAR HEMOGLOBIN 29.9 pg (27.0-33.0); MEAN CORPUSCULAR HGB CONC 31.8 g/dl (32.0-36.5); MONO # 0.7 10^3/uL (0.0-0.8); MONO % 9.7 % (2.0-8.0); NEUTROPHILS % 58.3 % (36.0-66.0); PLATELET COUNT, AUTOMATED 363 10^3/uL (150-450); RED BLOOD COUNT 3.31 10^6/uL (4.00-5.40); WHITE BLOOD COUNT 6.8 10^3/uL (4.0-10.0)
[2025-01-31 11:00] LABS: ALBUMIN 3.4 G/DL (3.2-5.2); ALKALINE PHOSPHATASE 64 U/L (35-104); ALT/SGPT 28 U/L (7.0-40); AST/SGOT 27 U/L (<34); BILIRUBIN,TOTAL 0.4 MG/DL (0.3-1.2); BLOOD UREA NITROGEN 16 MG/DL (9-23); CALCIUM LEVEL 8.8 MG/DL (8.3-10.6); CARBON DIOXIDE LEVEL 30 MMOL/L (20-31); CHLORIDE LEVEL 105 MMOL/L (98-107); CHOLESTEROL LEVEL 123 MG/DL (<200); CHOLESTEROL RISK RATIO 2.13 (<5); FERRITIN 265.9 NG/ML (7.3-270.7); GLOMERULAR FILTRATION RATE > 90.0 (>45); GLUCOSE, FASTING 80 MG/DL (74-106); HDL CHOLESTEROL 57.7 MG/DL (>40); IRON (FE) 163 UG/DL (50-170); LDL CHOLESTEROL 47.9 MG/DL (<100); NON-HDL-C 65.3 MG/DL; PERCENT SATURATION 51.3 % (13.2-45.0); POTASSIUM SERUM 4.1 MMOL/L (3.5-5.1); SODIUM LEVEL 141 MMOL/L (136-145); TOTAL IRON BINDING CAPACITY 318 UG/DL (250-425); TRIGLYCERIDES LEVEL 87 MG/DL (<150)
[2025-01-31 11:04] LABS: HEMOGLOBIN A1c 4.6 % (4.0-6.0)
== END ==
LOC: M PLALAB 07:39
PROVIDERS: ATTEND Student in an Organized Health Care Education/Training Program
DX: Z86.39 Personal history of other endocrine, nutritional and metabolic disease (principal)

== ENCOUNTER 2025-05-16 08:07 | Outpatient (CLI) | payer BC ==
[~2025-05-16 08:07] MED LIST changes: +ALBUTEROL SULFATE 2.5 MG/0.5 ML INH CONCENTRATE NEB SOLN INH PRN; +AMIT10TA11 PO; -AMIT10TA7 PO; +EPINEPHrine INJ 1 MG/ML 1ML AMP IM PRN; -PRAV40TA2 PO; +PRAV40TA85 PO; +diphenhydrAMINE 50 MG/ML VIAL IV PRN
[2025-05-16 08:15] VITALS: BP 124/58; O2SAT 96
[2025-05-16] MEDS: IRON SUCROSE 500 MG in NS 250 ML OVER 4 HRS IV ONE (08:16)
[2025-05-16 09:42] VITALS: BP 109/68; O2SAT 97
[2025-05-16 12:12] VITALS: BP 127/90; O2SAT 97
== END 2025-05-16 12:20 ==
LOC: M INFU 08:07
PROVIDERS: ATTEND Student in an Organized Health Care Education/Training Program
DX: D50.9 Iron deficiency anemia, unspecified (principal); Z88.8 Allergy status to other drugs, medicaments and biological substances; Z91.040 Latex allergy status
CPT/HCPCS: 96365; 96366; J1756

== ENCOUNTER → 2025-06-19 | Outpatient (REF) | payer BC ==
[~2025-06-19] MED LIST changes: -ALBUTEROL SULFATE 2.5 MG/0.5 ML INH CONCENTRATE NEB SOLN INH PRN; -EPINEPHrine INJ 1 MG/ML 1ML AMP IM PRN; -diphenhydrAMINE 50 MG/ML VIAL IV PRN
== END ==
LOC: M LAB REF 12:10
PROVIDERS: ATTEND Nurse Practitioner Family
DX: R30.0 Dysuria (principal)

== ENCOUNTER → 2025-06-25 | Outpatient (CLI) | payer BC ==
[2025-06-25 15:14] LABS: IRON (FE) 69.0 UG/DL (50-170); PERCENT SATURATION 23.0 % (13.2-45.0)
[2025-06-25 15:31] LABS: PLATELET COUNT, AUTOMATED 328 10^3/uL (150-450)
== END ==
LOC: M PLALAB 10:15
PROVIDERS: ATTEND Family Medicine
DX: D50.0 Iron deficiency anemia secondary to blood loss (chronic) (principal)

== ENCOUNTER → 2025-07-01 | Outpatient (REF) | payer BC | LOC: M LAB REF 12:12 | PROVIDERS: ATTEND Nurse Practitioner Family | DX: R30.0 Dysuria (principal) ==